=== PATIENT | female | born 1955 | race Caucasian/White ===

== ENCOUNTER 2016-06-05 06:41 | Inpatient (IN) | payer MEDICARE ==
[~2016-06-05] VITALS: Ht 170.2 cm; Wt 152.9 kg
[~2016-06-05 06:41] MED LIST: BETAPACE 80 MG80 MG PO; CARDIZEM IV; CATAPRES0.1 MG PO; COUMADIN5 MG PO; COUMADIN7.5 MG PO; DEMADEX20 MG PO; DEPAKOTE500 MG PO; DILANTIN100 MG PO; DILANTIN30 MG; HEPARIN; HYDROCODONE-APA1 TA3 PO; LANOXIN250 MCG PO; LIBRAX CAPSULE1 CAP PO; LOPRESSOR25 MG PO; MICRO-K10 MEQ PO; NORVASC5 MG PO; PRILOSEC20 MG PO; RISPERDAL 0.50.5 MG PO; SOMA350 MG PO; SYNTHROID25 MCG PO; VICODIN 5/500 T1 TAB PO; ZOLOFT100 MG PO
[2016-06-05 07:48] LABS: BASOPHILS 0.1 % (0.0-2.0); EOSINOPHILS 0 % (0-7); HEMATOCRIT 40.9 % (36.0-48.0); HEMOGLOBIN 13.2 g/dL (12-16); IMMATURE GRANULOCYTES 0.3 % (0-5); LYMPHOCYTES 7.4 % (15-50); MCH 31.3 pg (26.0-34.0); MCHC 32.3 g/dL (31.0-37.0); MCV 96.9 fL (80.0-100.0); MEAN PLATELET VOLUME 10.5 fL (7.4-10.4); NEUTROPHILS 85.2 % (40-80); PLATELET COUNT 196 10x3/uL (130-400); RBC 4.22 10x6/uL (4.00-5.40); RDW 13.8 % (11.5-14.5); WBC 16.7 10x3/uL (4.8-10.8)
[2016-06-05 07:57] LABS: APPEARANCE CLEAR (CLEAR); BILIRUBIN NEGATIVE (NEGATIVE); COLOR YELLOW (YELLOW); GLUCOSE NEGATIVE (NEGATIVE); KETONE NEGATIVE (NEGATIVE); LEUKOCYTE ESTERASE TRACE (NEGATIVE); NITRITE NEGATIVE (NEGATIVE); PROTEIN 2+ mg/dL (NEGATIVE); UROBILINOGEN NORMAL (NORMAL)
[2016-06-05 07:58] LABS: BACTERIA FEW /hpf (NONE SEEN); EPITHELIAL CELLS 0-5 /hpf (0-5); MUCUS <1+ /lpf (NONE SEEN); RED CELLS - URINE NONE SEEN /hpf (0-5); WHITE CELLS - URINE 0-5 /hpf (0-5)
[2016-06-05 07:59] LABS: HYALINE CAST OCC /lpf (NONE SEEN)
[2016-06-05 08:01] LABS: ALBUMIN 3.1 g/dL (3.4-5.0); ANION GAP 12.8 mmol/L (8-16); BILIRUBIN - TOTAL 0.4 mg/dL (0.2-1.3); CALCIUM 9.2 mg/dL (8.5-10.1); CARBON DIOXIDE 26.5 mmol/L (21.0-32.0); CREATININE - SERUM 1.3 mg/dL (0.6-1.3); POTASSIUM - SERUM 5.3 mmol/L (3.5-5.1); PROTEIN - SERUM 7.1 g/dL (6.4-8.2)
[2016-06-05 08:02] LABS: APTT 39.8 SECONDS (22.8-39.4); INR 2.64 (0.85-1.17); PROTIME 28.3 SECONDS (11.6-15.0)
[2016-06-05 08:10] LABS: DIGOXIN 1.37 ng/mL (0.90-2.00); PHENYTOIN (DILANTIN) 3.2 ug/mL (10.0-20.0); THYROID STIMULATING HORMONE 1.4 uIU/mL (0.36-3.74)
[2016-06-05 13:45] VITALS: BP 132/48; BMI 52.2
--- NOTE | 2016-06-05 14:01 | NUR ---
PT IS ALERT. ASSESSMENT DONE PER FLOWSHEET. NO OTHER NEEDS AT THIS TIME. WILL CONTINUE TO MONTIOR.
[2016-06-05] MEDS ORDERED: HYDROCODONE-APA1 TAB PO (14:47)
--- NOTE | 2016-06-05 14:59 | NUR ---
Patient Name: AARON HUNTER Admission Status: ER Accout number: [id number] Admission Date: 06-05-2016 : 1955 Admission Diagnosis: Bronchopneuminia Attending: WESLEY Current LOS: 1 Anticipated DC Date: 06-07-2016 Planned Disposition: Home Primary Insurance: MEDICARE A & B Discharge Planning Comments: Cm met with patient to complete initial discharge planning assessment. Patient gave consent to complete assessment. Patient reports she lives at home with her , her son, and her daughter in law. He has to assist her in and out of the bath/shower and her daughter in law cooks all the meals. She is independent in al other areas of ADL's. Patient plans to return to home with her family at discharge. She is requesting that we assist her with a wheelchair at discharge. CM will continue to follow and assist with dc plan/needs. Babbitter: Tana Patricia RN, [facility] [phone] Is the patient Alert and Oriented? Yes 0 * How many steps to enter\exit or inside your home? ramp 0 * PCP Dr. Jalloh or Dr. Allen 0 * Pharmacy [facility] or [facility] 0 * Preadmission Environment Home with Family 0 * ADLs Partial Dependent 0 * Equipment Cane Walker 0 * Other Equipment PT/INR Monitor (ordered by Dr. Daniel) 0 * List name and contact numbers for known caregivers / representatives who currently or will assist patient after discharge: Paramjit gonsalves - [phone] 0 * Community resources currently utilized None 0 * Additional services required to return to the preadmission environment? Yes 0 * Can the patient safely return to the preadmission environment? Yes 0 * Has this patient been hospitalized within the prior 30 days at any hospital? No
[2016-06-05 15:49] VITALS: BP 134/59
[2016-06-05 18:15] LABS: HEMOGLOBIN A1C 6.3 % (4.8-6.0)
--- NOTE | 2016-06-05 18:35 | NUR ---
MONITOR SHOWS CAF AT RATE OF 77.
[2016-06-05 21:37] VITALS: BP 157/65
[2016-06-06 00:30] VITALS: BP 142/60
[2016-06-06 02:46] LABS: BASOPHILS 0.2 % (0.0-2.0); EOSINOPHILS 0.1 % (0-7); HEMOGLOBIN 13.1 g/dL (12-16); IMMATURE GRANULOCYTES 0.3 % (0-5); LYMPHOCYTES 27.9 % (15-50); MCH 32.1 pg (26.0-34.0); MCHC 32.8 g/dL (31.0-37.0); MEAN PLATELET VOLUME 10.3 fL (7.4-10.4); MONOCYTES 13.2 % (2-11); NEUTROPHILS 58.3 % (40-80); PLATELET COUNT 220 10x3/uL (130-400); RBC 4.08 10x6/uL (4.00-5.40); RDW 13.9 % (11.5-14.5); WBC 15.1 10x3/uL (4.8-10.8)
[2016-06-06 03:11] LABS: INR 1.81 (0.85-1.17)
[2016-06-06 03:16] LABS: ALBUMIN 3.3 g/dL (3.4-5.0); ANION GAP 15.6 mmol/L (8-16); BILIRUBIN - TOTAL 0.48 mg/dL (0.2-1.3); CARBON DIOXIDE 27.7 mmol/L (21.0-32.0); CREATININE - SERUM 1.4 mg/dL (0.6-1.3); POTASSIUM - SERUM 4.3 mmol/L (3.5-5.1); PROTEIN - SERUM 7.6 g/dL (6.4-8.2)
[2016-06-06 04:30] VITALS: BP 170/77
--- NOTE | 2016-06-06 07:23 | NUR ---
PT SITTING UP IN BED DENIES NEEDS WILL CONT TO MONITOR.
[2016-06-06 08:05] LABS: MAGNESIUM - SERUM 1.7 mg/dL (1.8-2.4); PHOSPHOROUS 3.1 mg/dL (2.5-4.9)
[2016-06-06 08:59] VITALS: BP 165/72
[2016-06-06 12:14] VITALS: BP 173/88
[2016-06-06] MEDS ORDERED: MELATONIN10 M1 PO (15:12)
[2016-06-06] MEDS ORDERED: KLONOPIN1 MG PO (15:12)
[2016-06-06 16:13] VITALS: BP 199/84
[2016-06-06] MEDS ORDERED: COZAAR50 MG PO (16:44)
[2016-06-06] MEDS ORDERED: NEURONTIN 300300 MG PO (16:45)
[2016-06-06] MEDS ORDERED: ZOCOR40 MG PO (16:47)
[2016-06-06] MEDS ORDERED: CARDIZEM120 MG PO (16:47)
[2016-06-06] MEDS ORDERED: K-TAB10 MEQ PO (16:48)
[2016-06-06] MEDS ORDERED: LEVOXYL75 MCG PO (16:49)
[2016-06-06] MEDS ORDERED: SOMA350 MG PO (16:50)
[2016-06-06] MEDS ORDERED: PERCOCET 10/3251 TA1 PO (16:50)
--- NOTE | 2016-06-06 18:12 | NUR ---
PT SITTING UP IN BED FAMILY AT BEDSIDE. DENIES NEEDS
--- NOTE | 2016-06-06 19:15 | NUR ---
INITIAL ROUNDS MADE. PT SITTING UP IN BED WITH FAMILY IN ROOM. DENIES NEEDS OR C/O AT THIS TIME. REQUESTING PAIN PILL WHEN AVAILABLE. WILL CONT TO MONITOR.
[2016-06-06 21:37] VITALS: BP 171/75
[2016-06-06] MEDS ORDERED: BENADRYL50 MG PO (21:59)
--- NOTE | 2016-06-07 00:21 | NUR ---
NEWSPAPER DISTRIBUTOR SUPERVISOR AT BEDSIDE FOR VS. NEEDS ADDRESSED AT THIS TIME. CALL LIGHT IN REACH. WILL CONT TO MONITOR.
[2016-06-07 00:30] VITALS: BP 156/65
[2016-06-07 04:45] VITALS: BP 187/77
--- NOTE | 2016-06-07 05:15 | NUR ---
ASSISTED UP TO BATHROOM. AT BEDSIDE.
[2016-06-07 06:46] LABS: BASOPHILS 0.3 % (0.0-2.0); EOSINOPHILS 0.2 % (0-7); HEMATOCRIT 40.1 % (36.0-48.0); IMMATURE GRANULOCYTES 0.4 % (0-5); MCH 31.8 pg (26.0-34.0); MCHC 32.4 g/dL (31.0-37.0); MEAN PLATELET VOLUME 10.6 fL (7.4-10.4); NEUTROPHILS 70.1 % (40-80); PLATELET COUNT 239 10x3/uL (130-400); RBC 4.09 10x6/uL (4.00-5.40); RDW 14.1 % (11.5-14.5)
[2016-06-07 06:47] LABS: WBC 11.2 10x3/uL (4.8-10.8)
[2016-06-07 06:55] LABS: INR 1.62 (0.85-1.17); PROTIME 19.2 SECONDS (11.6-15.0)
[2016-06-07 07:04] LABS: ALBUMIN 3.2 g/dL (3.4-5.0); ANION GAP 15.2 mmol/L (8-16); BILIRUBIN - TOTAL 0.6 mg/dL (0.2-1.3); CALCIUM 8.9 mg/dL (8.5-10.1); CARBON DIOXIDE 25.8 mmol/L (21.0-32.0); CREATININE - SERUM 1.3 mg/dL (0.6-1.3); MAGNESIUM - SERUM 1.5 mg/dL (1.8-2.4); PHOSPHOROUS 3.2 mg/dL (2.5-4.9); PROTEIN - SERUM 7.6 g/dL (6.4-8.2)
--- NOTE | 2016-06-07 07:30 | NUR ---
RECEIVED PT IN BED AAOX4 RESP UNLABORED SKIN W/D COLOR WNL DENIES ANY NEEDS AT THIS TIME NAD NOTED
[2016-06-07 08:00] VITALS: BP 187/73
--- NOTE | 2016-06-07 12:05 | NUR ---
FSBS 122
[2016-06-07 12:08] VITALS: BP 155/68
[2016-06-07 16:00] VITALS: BP 149/72
--- NOTE | 2016-06-07 17:18 | NUR ---
FSBS 129
--- NOTE | 2016-06-07 19:15 | NUR ---
INITIAL ROUNDS MADE. PT SITTING UP IN BED WATCHING TV WITH FAMILY AT BEDSIDE. DENIES NEEDS OR C/O AT THIS TIME. CALL LIGHT IN REACH. WILL CONT TO MONITOR.
[2016-06-07 21:40] VITALS: BP 172/68
--- NOTE | 2016-06-07 22:30 | NUR ---
PT PULLED IV OUT WHEN UP TO BSC, CATH TIP INTACT.
[2016-06-08 02:00] VITALS: BP 140/65
--- NOTE | 2016-06-08 02:30 | NUR ---
ATTEMPT TO RESITE IV UNSUCCESSFUL AT THIS TIME.
--- NOTE | 2016-06-08 03:47 | NUR ---
RESTING WELL WITH EYES CLOSED. CALL LIGHT IN REACH. WILL CONT TO MONITOR.
[2016-06-08 04:21] LABS: BASOPHILS 0.3 % (0.0-2.0); EOSINOPHILS 0.3 % (0-7); HEMATOCRIT 39.5 % (36.0-48.0); HEMOGLOBIN 12.2 g/dL (12-16); IMMATURE GRANULOCYTES 0.3 % (0-5); LYMPHOCYTES 39.8 % (15-50); MCH 31.2 pg (26.0-34.0); MCHC 30.9 g/dL (31.0-37.0); MEAN PLATELET VOLUME 10.3 fL (7.4-10.4); NEUTROPHILS 42.3 % (40-80); RBC 3.91 10x6/uL (4.00-5.40); RDW 14.2 % (11.5-14.5)
[2016-06-08 04:37] LABS: PROTIME 22.7 SECONDS (11.6-15.0)
[2016-06-08 04:46] LABS: ALBUMIN 2.9 g/dL (3.4-5.0); ANION GAP 9.8 mmol/L (8-16); BILIRUBIN - TOTAL 0.36 mg/dL (0.2-1.3); CALCIUM 8.7 mg/dL (8.5-10.1); CREATININE - SERUM 1.1 mg/dL (0.6-1.3); MAGNESIUM - SERUM 1.7 mg/dL (1.8-2.4); POTASSIUM - SERUM 4.4 mmol/L (3.5-5.1)
[2016-06-08 04:50] LABS: PLATELET COUNT 177 10x3/uL (130-400); WBC 6.9 10x3/uL (4.8-10.8)
[2016-06-08 04:53] LABS: CARBON DIOXIDE 36.6 mmol/L (21.0-32.0)
--- NOTE | 2016-06-08 07:30 | NUR ---
RESTING QUIETLY NAD NOTED
[2016-06-08 07:52] VITALS: BP 149/54
--- NOTE | 2016-06-08 08:40 | NUR ---
IV access-22 gauge IV catheter inserted in right hand for access. Elsy LeavittRN
--- NOTE | 2016-06-08 11:23 | NUR ---
WOUND CARE CONSULT: PT HAS DRY SKIN AND IS USING EUCERIN LOTION FOR MOISTURIZING. NO CHRONIC WOUNDS.
--- NOTE | 2016-06-08 11:37 | NUR ---
FSBS 154
[2016-06-08 11:42] VITALS: BP 156/83
[2016-06-08 15:51] VITALS: BP 109/42
--- NOTE | 2016-06-08 17:20 | NUR ---
FSBS 138
--- NOTE | 2016-06-08 19:15 | NUR ---
INITIAL ROUNDS MADE. PT SITTING UP IN BED WATCHING TV WITH FAMILY AT BEDSIDE. DISCUSSED PLAN OF CARE AND ANSWERED QUESTIONS. PT DENIES NEEDS OR C/O AT THIS TIME. CALL LIGHT IN REACH. WILL CONT TO MONITOR.
--- NOTE | 2016-06-08 23:54 | NUR ---
METHODS ENGINEER AT BEDSIDE FOR VS. NEEDS ADDRESSED AT THIS TIME. CALL LIGHT IN REACH. WILL CONT TO MONITOR.
[2016-06-09] VITALS: BP 151/71
[2016-06-09 04:00] VITALS: BP 129/67
[2016-06-09 07:01] LABS: HEMATOCRIT 40.6 % (36.0-48.0); HEMOGLOBIN 12.7 g/dL (12-16); MCH 31.5 pg (26.0-34.0); MCHC 31.3 g/dL (31.0-37.0); MCV 100.7 fL (80.0-100.0); MEAN PLATELET VOLUME 10.2 fL (7.4-10.4); RBC 4.03 10x6/uL (4.00-5.40); RDW 14.2 % (11.5-14.5)
[2016-06-09 07:07] LABS: PLATELET COUNT 244 10x3/uL (130-400)
[2016-06-09 07:20] LABS: INR 2.34 (0.85-1.17); PROTIME 25.7 SECONDS (11.6-15.0)
[2016-06-09 07:26] LABS: ANION GAP 12.6 mmol/L (8-16); BILIRUBIN - TOTAL 0.3 mg/dL (0.2-1.3); CALCIUM 9.1 mg/dL (8.5-10.1); CARBON DIOXIDE 32.6 mmol/L (21.0-32.0); CREATININE - SERUM 1.3 mg/dL (0.6-1.3); POTASSIUM - SERUM 4.2 mmol/L (3.5-5.1); PROTEIN - SERUM 7.1 g/dL (6.4-8.2)
[2016-06-09 07:48] VITALS: BP 120/60
[2016-06-09 08:04] LABS: ANISOCYTOSIS OCC; LYMPHOCYTES 51 % (15-50); MONOCYTES 10 % (2-11); NEUTROPHILS 38 % (40-80); PLATELET ESTIMATE NORMAL
--- NOTE | 2016-06-09 09:48 | NUR ---
PT IS ALERT. ASSESSMENT DONE PER FLOWSHEET. NO OTHER NEEDS AT THIS ITME. WILL CONTINUE TO MONTIOR.
[2016-06-09 11:46] VITALS: BP 142/64
--- NOTE | 2016-06-09 14:27 | NUR ---
NO SS OF DISTRESSS PT UP AT BEDSIDE. WILL CONTINUE TO MONITOR.
[2016-06-09 16:01] VITALS: BP 146/80
--- NOTE | 2016-06-09 19:18 | NUR ---
PT IS ALERT. ASSESSMENT DONE PER FLOWSHEET. NO OTHER NEEDS AT THIS TIME. WILL CONTINUE TO MONTITOR
[2016-06-09 20:00] VITALS: BP 146/71
[2016-06-10] VITALS: BP 156/74
--- NOTE | 2016-06-10 00:26 | NUR ---
PT SLEEPING. APPEARS COMFORTABLE. NO DISTRESS NOTED. RESP EVEN AND UNLABORED. FAMILY SLEEPING AT BEDSIDE. CALL LIGHT WITH IN REACH. WILL CONT. TO MONITOR.
--- NOTE | 2016-06-10 01:11 | NUR ---
PT C/O GENERALIZED PAIN 12/28. STATES PAIN IN WORSE IN RT HIP WHICH IS CHRONIC. PT A/O. SPOUSE AT BEDSIDE. PRN NORCO GIVEN. DENIES OTHER NEEDS. CALL LIGHT WITH IN REACH. WILL CONT. TO MONITOR.
[2016-06-10 05:55] LABS: BASOPHILS 0.5 % (0.0-2.0); EOSINOPHILS 0.3 % (0-7); HEMOGLOBIN 11.1 g/dL (12-16); IMMATURE GRANULOCYTES 0.5 % (0-5); LYMPHOCYTES 49.5 % (15-50); MCH 31.1 pg (26.0-34.0); MCHC 30.8 g/dL (31.0-37.0); MCV 100.8 fL (80.0-100.0); MEAN PLATELET VOLUME 10.5 fL (7.4-10.4); MONOCYTES 11.3 % (2-11); NEUTROPHILS 37.9 % (40-80); RBC 3.57 10x6/uL (4.00-5.40); RDW 14.3 % (11.5-14.5); WBC 7.5 10x3/uL (4.8-10.8)
[2016-06-10 06:03] LABS: INR 2.7 (0.85-1.17); PROTIME 28.9 SECONDS (11.6-15.0)
[2016-06-10 06:07] LABS: PLATELET COUNT 190 10x3/uL (130-400)
[2016-06-10 06:16] LABS: ALBUMIN 2.3 g/dL (3.4-5.0); ANION GAP 10.7 mmol/L (8-16); BILIRUBIN - TOTAL 0.21 mg/dL (0.2-1.3); CALCIUM 8.5 mg/dL (8.5-10.1); CARBON DIOXIDE 33.1 mmol/L (21.0-32.0); CREATININE - SERUM 1.1 mg/dL (0.6-1.3); POTASSIUM - SERUM 4.8 mmol/L (3.5-5.1); PROTEIN - SERUM 5.8 g/dL (6.4-8.2)
[2016-06-10 06:28] VITALS: BP 118/53
[2016-06-10 08:17] VITALS: BP 109/51
--- NOTE | 2016-06-10 08:53 | NUR ---
PT IS ALERT. ASSESSMENT ODNE PER FLOWSHEET. NO OTHER NEEDS
[2016-06-10 11:50] VITALS: BP 94/58
--- NOTE | 2016-06-10 12:22 | NUR ---
PT ALERT. NO SS OF DISTRESS WILL CONTINUE TO MONITOR.
[2016-06-10 16:11] VITALS: BP 104/72
--- NOTE | 2016-06-10 16:59 | NUR ---
Rehab Prescreening Consult recieved and the chart has been reviewed. She is a good rehab candidate, but has not walked with PT. Rehab will re-eval in the AM after PT sees her. Hortensia Francois RN Clinical Liaison, Rehab
--- NOTE | 2016-06-10 19:37 | NUR ---
RESUMED CARE OF PT, LYING IN BED RESPIRATIONS EVEN AND UNLABORED ON 2LPM VIA NC. 77 CAF WITH PVCS. NO NEEDS VOICED AT THIS TIME. WILL CONTIUE TO MONITOR. SEE NURSE ASSESSMENT. CALL LIGHT IN REACH.
[2016-06-10 20:00] VITALS: BP 154/69
[2016-06-11] VITALS: BP 136/64
--- NOTE | 2016-06-11 02:18 | NUR ---
LYING IN BED, CALL LIGHT IN REACH. WILL CONTINUE WITH PLAN OF CARE. 75 CAF WITH PVCS
[2016-06-11 04:00] VITALS: BP 145/71
[2016-06-11 05:25] LABS: BASOPHILS 0.3 % (0.0-2.0); EOSINOPHILS 0.4 % (0-7); HEMATOCRIT 40.1 % (36.0-48.0); HEMOGLOBIN 12.7 g/dL (12-16); IMMATURE GRANULOCYTES 0.6 % (0-5); LYMPHOCYTES 42.1 % (15-50); MCH 31.6 pg (26.0-34.0); MCHC 31.7 g/dL (31.0-37.0); MCV 99.8 fL (80.0-100.0); MEAN PLATELET VOLUME 10.7 fL (7.4-10.4); MONOCYTES 11.6 % (2-11); PLATELET COUNT 219 10x3/uL (130-400); RBC 4.02 10x6/uL (4.00-5.40); RDW 14.1 % (11.5-14.5)
[2016-06-11 05:33] LABS: WBC 9.5 10x3/uL (4.8-10.8)
[2016-06-11 05:47] LABS: ANION GAP 11.6 mmol/L (8-16); CALCIUM 9.3 mg/dL (8.5-10.1); CARBON DIOXIDE 33.9 mmol/L (21.0-32.0); POTASSIUM - SERUM 4.5 mmol/L (3.5-5.1)
[2016-06-11 08:04] VITALS: BP 157/69
--- NOTE | 2016-06-11 09:29 | NUR ---
RESP UL ON 2L NC. IV PATENT. TELEMETRY CAF. WILL CONT. PLAN OF CARE.
[2016-06-11 12:02] VITALS: Ht 170.2 cm; Wt 152.9 kg
--- NOTE | 2016-06-11 12:25 | NUR ---
PATIENT IS INTERESTED IN GOING TO ACUTE REHAB. SHE HAS BEEN EVALUATED BY [facility] AND SHE IS ACCEPTED TO GO TO REHAB TODAY. PATIENT AND HER ARE IN AGREEMENT WITH HER GOING TO REHAB. IMM EXPLAINED AND GIVEN TO PATIENT AND COPY PLACED ON CHART.
[2016-06-11 13:01] VITALS: BP 149/80
--- NOTE | 2016-06-11 13:19 | NUR ---
UP AMBULATING WITH PT ASSIST.
--- NOTE | 2016-06-11 13:49 | CN ---
PATIENT NAME:AARON BOWEN MEDICAL RECORD: [id number] : 51 LOCATION:D. D.2114 ADMIT DATE: 06/05/16 ACCOUNT: [id number] CONSULTING PHYSICIAN: MANASA CARMICHAEL MD REFERRING PHYSICIAN: KAMERON HOLGUIN DO DATE OF CONSULTATION: 06/07/2016 CONSULT REQUESTING PHYSICIAN: Dr. Mtz. REASON FOR CONSULTATION: Pneumonia. Ms. Bowen is a 61-year-old female who was admitted on the 05 of June with possible pneumonia, worsing shortness of breath and coughing. HISTORY OF PRESENT ILLNESS: Ms. Bowen is a 61-year-old female with morbid obesity. According to patient prior admission for almost 2 weeks, she was not feeling well and then she has no energy and 911 was called and the patient was brought into the hospital by ambulance. On arrival here, she has a fever of 100.7. She has cough without much sputum production. She has shortness of breath with exertion. Generally, she is very weak and lethargic. REVIEW OF SYSTEMS: Mainly in the history of present illness. PAST MEDICAL HISTORY: 1. History of seizure disorder. 2. Atrial fibrillation. 3. Status post pacemaker placement. 4. Fibromyalgia. 5. Hypertension. 6. Mitral regurgitation. PAST SURGICAL HISTORY: 1. Cholecystectomy. 2. Carpal tunnel surgery. 3. Status post pacemaker placement. 4. Breast reduction surgery. 5. History of surgery for ectopic . ALLERGIES: SHE IS ALLERGIC TO TALWIN, UNASYN, AMPICILLIN, ANCEF, VERSED, LYRICA, SULFA, BACTRIM. PRESENT MEDICATIONS: 1. She is on Levaquin. 2. She is on albuterol/ipratropium nebulizer. 3. She is on Budesonide and Brovana nebulizer. Her other medications were reviewed on [employer]. PERSONAL AND SOCIAL HISTORY: The patient is . She lives with her . She has remote history of smoking. FAMILY HISTORY: Unknown. PHYSICAL EXAMINATION: GENERAL: Now, the patient is lying comfortably. She is not in acute distress. VITAL SIGNS: The blood pressure is 155/68, pulse is 71, respirations 20, CONSULT REPORT [id number] AARON BOWEN temperature 98.8, SpO2 is 97% on 3 liters nasal cannula. HEENT: Conjunctivae is pink, sclerae nonicteric. NECK: Supple. No JVD. CHEST: Excursion is minimal on both sides. There are bibasilar crackles. No wheezing. HEART: Rhythm regular, normal sound, no murmur. ABDOMEN: Soft. Bowel sounds present. No hepatosplenomegaly. RECTAL: Deferred. EXTREMITIES: No cyanosis, no clubbing and no pedal edema. SKIN: Warm, normal turgor. CENTRAL NERVOUS SYSTEM: The patient is awake and alert. There are no obvious cranial nerve abnormalities. The gait was not tested. LABORATORY DATA: CBC: WBC on admission was 16.7, now is down to 11.2, hemoglobin 13, hematocrit 40.1 and the platelet count is 239. Chemistry: Sodium 136, potassium is 4, BUN is 13, creatinine 1.3. Glucose 198. IMPRESSION: 1. Pneumonia, most likely community-acquired pneumonia, bilateral, possible viral pneumonitis. 2. Leukocytosis secondary to pneumonia. 3. Possible underlying chronic obstructive pulmonary disease with a remote history of smoking. 4. Morbid obesity. 5. Acute hypoxic respiratory failure. 6. Suspect obstructive sleep apnea. RECOMMENDATION: I will continue Levaquin. Continue albuterol/ipratropium nebulizer. Continue the Brovana and budesonide nebulizer. I will repeat the chest radiograph. We will consider the CTA if the chest x-ray is clear. Followup labs. Dr. Mtz, once again thank you for involving me in the care of Ms. Bowen. TRANSINT:[id number] Voice Confirmation ID: [id number] DOCUMENT ID: [id number] MANASA CARMICHAEL MD at 1349 CC: HORACE COOL M.D. [id number] DICTATION DATE: 06/07/16 1545 RELEASE OF INFORMATION SPECIALIST: 06/07/16 3957 ADM IN [place] [id number] [place] [address]
[2016-06-11 16:32] VITALS: BP 159/71
--- NOTE | 2016-06-11 17:01 | NUR ---
REPORT CALLED TO REHAB. ESCORTED BY W/C.
--- NOTE | 2016-06-15 14:37 | EC ---
PATIENT:AARON HUNTER DATE OF SERVICE: 06/05/16 SEX: F MEDICAL RECORD: [id number] DATE OF : [birth year] LOCATION:D.M2 D.211 AGE OF PATIENT: 61 ADMISSION DATE: 06/05/16 REFERRING PHYSICIAN: INTERPRETING PHYSICIAN: PAVEL MORALES MD ECHOCARDIOGRAM REPORT ECHO CHARGES 4 ECHO COMPLETE CLINICAL DIAGNOSIS: LV DYSFUNCTION HX HTN/PACER/AFIB ECHOCARDIOGRAPHIC MEASUREMENTS (adult normal given) AC root (d.<3.7cm) 3.2 LV Septum d (<1.2 cm> 1.3 Valve Excursion 1.5 LV Septum (systole) 1.4 Left Atria (s.<4.0cm> 4.5 LVPW d(<1.2cm) 1.6 RV (d.<2.3cm) 5.5 LVPW (sytole) 1.8 LV diastole(<5.6CM) 6.5 MV E-F(>70mm/sec) LV systole 4.4 LVOT Diameter 1.9 MV exc.(>10mm) 1.4 Est.ejection fraction (50-75%) Pericardial Effusion N DOPPLER: LVIT A 40.0 E 109 LA RVSP 43 LVOT 133 AOP1/2T Asc. Ao 255 RVOT 126 RA PA 158 AV Gradient Peak 26.06 AV Mean 12.44 AV Area 1.4 MV Gradient Peak 9.14 MV Mean 3.0 MV Area COMMENTS: Shirt Finisher: Dede CISNEROS Endless Bed Drum Sander:Merari Reddy TAPE# PACS DATE OF SERVICE: 06/06/2016 Echocardiogram FINDINGS: 1. Left ventricular chamber size is within normal limits. Left ventricular systolic function is normal. Overall ejection fraction estimated at 55% to 60%. 2. Left atrium is enlarged at 4.5 cm. Right atrium and right ventricular chamber sizes are as well moderately dilated. 3. 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 Valve area calculates to 1.4 cm-squared. There is a gradient of 26 mm across the valve. The remaining valvular structures have normal structure and motion. 4. Doppler interrogation elsewise reveals mild mitral regurgitation, mild tricuspid regurgitation, no other valvular insufficiency or stenosis. Pulmonary systolic pressure is mildly elevated estimated at 43 mmHg. 5. No evidence of pericardial effusion or left ventricular thrombus. TRANSINT:[id number] Voice Confirmation ID: [id number] DOCUMENT ID: [id number] 06/14/2016 Edited to correct date of service, [email or web address]. PAVEL MORALES MD at 1437 CC: [id number] DICTATION DATE: 06/07/16 1208 BARTENDER MANAGER: 06/07/16 1424 DIS IN 06/11/16 [place] [id number] [place] [id number]
== END 2016-06-11 17:02 | DRG 189 ==
LOC: D.ER 06:41 → D.M2 12:59
PROVIDERS: Emergency Medicine; Family Medicine; Surgery; ADMIT Family Medicine
DX: J96.01 Acute respiratory failure with hypoxia (principal); J18.9 Pneumonia, unspecified organism; J44.0 Chronic obstructive pulmonary disease with (acute) lower respiratory infection; Z68.43 Body mass index [BMI] 50.0-59.9, adult; G40.909 Epilepsy, unspecified, not intractable, without status epilepticus; I48.91 Unspecified atrial fibrillation; I10 Essential (primary) hypertension; M79.7 Fibromyalgia; I34.0 Nonrheumatic mitral (valve) insufficiency; E66.01 Morbid (severe) obesity due to excess calories; G47.33 Obstructive sleep apnea (adult) (pediatric); E87.5 Hyperkalemia; R73.9 Hyperglycemia, unspecified; I27.2 Other secondary pulmonary hypertension; Z79.01 Long term (current) use of anticoagulants; Z95.0 Presence of cardiac pacemaker; Z87.891 Personal history of nicotine dependence

== ENCOUNTER 2016-06-11 17:27 | Inpatient (IN) | payer MEDICARE ==
--- NOTE | 2016-06-11 17:15 | NUR ---
PT ARRIVED TO THE FLOOR VIA WHEELCHAIR VITAL SIGNS STABLE PT ORIENTED TO ROOM TOLERATED WELL SILVANA CHOPRA
[~2016-06-11 17:27] MED LIST changes: +BENADRYL50 MG PO; +CARDIZEM120 MG PO; +COZAAR50 MG PO; +HYDROCODONE-APA1 TAB PO; +K-TAB10 MEQ PO; +KLONOPIN1 MG PO; +LEVOXYL75 MCG PO; +MELATONIN10 M1 PO; +NEURONTIN 300300 MG PO; +PERCOCET 10/3251 TA1 PO; +ZOCOR40 MG PO
[2016-06-11 18:41] VITALS: BP 173/74
--- NOTE | 2016-06-11 19:40 | NUR ---
PT AWAKE, ALERT & ORIENTED, CONVERSIVE, ASSISTED WITH COMPLETING ADMISSION DOCUMENTATION. PT STATES SHE HAS CHRONIC PAIN AND DOESN'T EVER GET ANY RELIEF RELATED TO HER MYALGIA. PT STATES SHE HAS LOST >100 POUNDS AND EXPRESSES CONCERN ABOUT HER FOOD CHOICES/OPTIONS. SHE STATES SHE HAS STARTED DRINKING REGULAR NINI AGAIN.
--- NOTE | 2016-06-11 21:20 | NUR ---
ASSISTED PT TO BATHROOM WITH MAX ASSIST, PT APPEARS MOTIVATED HOWEVER HAS DIFFICULTY WITH MOBILITY. BED MOBILITY A MAX ASSIST.
[2016-06-11 21:29] VITALS: BP 167/80; BMI 53.4
--- NOTE | 2016-06-12 03:45 | NUR ---
ASSISTED PT ON BEDPAN, MAX ASSIST TIMES 2.
--- NOTE | 2016-06-12 03:45 | NUR ---
PT STATES SHE HURTS TO BAD TO GET UP TO BATHROOM AND SHE HASN'T BEEN ABLE TO SLEEP. PATIENT HAS OXYGEN ON AT 2 L NC.
--- NOTE | 2016-06-12 05:32 | NUR ---
RETURNED WASHED PJ BOTTOMS, PT STATED EARLIER SPOUSE IS EXPECTED TO BRING MORE CLOTHES FOR PATIENT. PJ BOTTOMS BECAME SOILED WHEN USING THE BEDPAN.
--- NOTE | 2016-06-12 06:07 | NUR ---
PT APPEARS TO HAVE RESOLVING YEASTON LEFT PANAS FOLD, NEW REDNESS DEVELOPING IN FOLD.
--- NOTE | 2016-06-12 07:00 | NUR ---
PT WAS RECEIVED AT THE BEGINNING OF THIS SHIFT IN BED AWAKE AND ORIENTED X 3. DENIES ANY PAIN OR DISCOMFORT. WILL BE MONITORING HER AND ASSISTING PRN WITH ADL'S. VITAL SIGNS WNL. CALL LIGHT IS IN REACH. NO SIGNS OF DISTRESS.
[2016-06-12 10:31] LABS: BASOPHILS 0.5 % (0.0-2.0); EOSINOPHILS 0.5 % (0-7); HEMATOCRIT 42.3 % (36.0-48.0); HEMOGLOBIN 13.8 g/dL (12-16); IMMATURE GRANULOCYTES 0.3 % (0-5); LYMPHOCYTES 32.4 % (15-50); MCH 32.5 pg (26.0-34.0); MCHC 32.6 g/dL (31.0-37.0); MCV 99.8 fL (80.0-100.0); MEAN PLATELET VOLUME 9.7 fL (7.4-10.4); MONOCYTES 9.6 % (2-11); NEUTROPHILS 56.7 % (40-80); PLATELET COUNT 280 10x3/uL (130-400); RBC 4.24 10x6/uL (4.00-5.40); RDW 14.1 % (11.5-14.5); WBC 8.8 10x3/uL (4.8-10.8)
[2016-06-12 11:43] LABS: ANION GAP 11.4 mmol/L (8-16); CALCIUM 9.5 mg/dL (8.5-10.1); CARBON DIOXIDE 37.9 mmol/L (21.0-32.0); INR 3.1 (0.85-1.17); POTASSIUM - SERUM 4.3 mmol/L (3.5-5.1); PROTIME 32.2 SECONDS (11.6-15.0)
[2016-06-12 11:47] LABS: CREATININE - SERUM 1.3 mg/dL (0.6-1.3)
[2016-06-12 13:09] VITALS: BP 162/93
--- NOTE | 2016-06-12 18:33 | NUR ---
PT HAS HAD AN UNEVENTFUL DAY TODAY. SHE TOOK A SHOWER THIS AM WITH OT ASSISTING HER. HER HAS COME TO VISIT HER THIS EVENING. SHE IS BACK IN BED AND IS RESTING AFTER HAVING TAKEN A NAP EARLY ON THIS EVENING BEFORE SUPPER. NO SIGNS OF ANY DISCOMFORT OR DISTRESS. CALL LIGHT IS IN REACH.
--- NOTE | 2016-06-12 19:22 | NUR ---
pt resting in bed supine position, respirations regular and unlabored, no s/s of acute distress. family present in room, conversing appears to be no conflict. no needs noted.
[2016-06-12 19:45] VITALS: BP 121/45
--- NOTE | 2016-06-12 22:03 | NUR ---
RIGHT HAND SALINE LOC FLUSHES EASILY. SITE SHOWS NO S/S OF INFECTION.
--- NOTE | 2016-06-13 02:05 | NUR ---
PT IN BED WITH HOB UP FOR COMFORT, EYES CLOSED, CHEST RISING AND FALLING, 02 @ 2L, BED IN LOWEST POSITION AND CALL LIGHT WITHIN REACH.
--- NOTE | 2016-06-13 06:05 | NUR ---
PT IN BED RESTING QUIETLY BED IN LOWEST POSITION AND CALL LIGHT WITHIN REACH.
[2016-06-13 06:49] LABS: INR 3.81 (0.85-1.17)
--- NOTE | 2016-06-13 08:02 | NUR ---
PATIENT RESTING IN BED. PATIENT IS ALERT/OREINT X4. OXYGEN ON AT 2L PER N/C. CALL LIGHT WITHIN REACH. VOICES NO NEEDS AT THIS TIME
--- NOTE | 2016-06-13 10:00 | NUR ---
PATIENT RESTING WELL. STATES RELIEF FROM SCHEDULED NORCO.
--- NOTE | 2016-06-13 14:55 | NUR ---
SLEEPING IN BED ON SIDE.FAMILY PRESENT.
--- NOTE | 2016-06-13 16:00 | NUR ---
COUMADIN HELD INR 3.8
--- NOTE | 2016-06-13 17:28 | NUR ---
PATIENTS AND SON IN ROOM. HELPED PATIENT INTO BATHROOM. PATIENT WALKES WITH STANDBY ASST. MOD ASST TO STAND FROM BED TO WHEELCHAIR AND WHEELCHAIR TO TOILET.
[2016-06-13 17:34] VITALS: BP 116/47
--- NOTE | 2016-06-13 19:00 | NUR ---
IN BD, AWAKE. LYING ON LEFT SIDE. FAMILY MEMBERS RECENTLY DEPARTED PER REPORT OF DAY SHIFT NURSE. PATIENT DENIES CURRENT NEEDS.
[2016-06-13 20:50] VITALS: BP 146/83
--- NOTE | 2016-06-13 20:50 | NUR ---
ASSISTED PATIENT UP TO BR COMMODE TO URINATE, AND THEN BACK TO BED. ASSESSMENT AND SCHEDULED HS MEDS COMPLETE. REPORTS CURRENT PAIN LEVEL OF 6/10, WHICH SHE REVISED DOWN FROM 10/10 AFTER I REVIEWED THE PAIN SCALE WITH HER AND THE REASON FOR ACCURATE REPORTING (TO INSURE WE PROVIDE THE CORRECT AMOUNT OF PAIN MEDICATION COMMENSURATE WITH PATIENT'S PAIN LEVEL).
--- NOTE | 2016-06-13 22:20 | NUR ---
RESTING QUIETLY IN BED ON LEFT SIDE AFTER I ASSISTED HER TO TURN FROM HER BACK ABOUT 2150 HRS.
--- NOTE | 2016-06-14 00:10 | NUR ---
RESTING IN BED AFTER REPOSITIONING ON LEFT SIDE @ 2315. NO DISTRESS NOTED.
--- NOTE | 2016-06-14 02:10 | NUR ---
ASSISTED PATIENT BACK TO BED AND REPOSITIONED HER ON HER LEFT SIDE FOR COMFORT AND PRESSURE RELIEF TO BUTTOCKS. PATIENT TRANSFERRED WITH GREATER DIFFICULTY THIS TIME THAN EARLIER.
--- NOTE | 2016-06-14 04:40 | NUR ---
RESTING IN BED ON LEGFT SIDE. RESPIRATIONS ARE QUIET AND UNLABORED.
--- NOTE | 2016-06-14 05:55 | NUR ---
ASSISTED PATIENT UP TO BR COMMODE TO URINATE AND TO CHANGE CLOTHING FOR THE DAY. RETURNED HER TO BED VIA W/C. TRANSFERS AND REPOSITIONS MAX ASSIST. NOW IN BED ON BACK WITH HOB UP 45 DEGREES.
[2016-06-14 06:05] LABS: BASOPHILS 0.3 % (0.0-2.0); EOSINOPHILS 0.4 % (0-7); HEMOGLOBIN 12.6 g/dL (12-16); IMMATURE GRANULOCYTES 0.3 % (0-5); LYMPHOCYTES 35.6 % (15-50); MCH 31.2 pg (26.0-34.0); MCHC 30.7 g/dL (31.0-37.0); MCV 101.5 fL (80.0-100.0); MEAN PLATELET VOLUME 9.9 fL (7.4-10.4); NEUTROPHILS 50.4 % (40-80); PLATELET COUNT 246 10x3/uL (130-400); RBC 4.04 10x6/uL (4.00-5.40); RDW 13.8 % (11.5-14.5); WBC 7.8 10x3/uL (4.8-10.8)
[2016-06-14 06:20] LABS: CALCIUM 8.8 mg/dL (8.5-10.1); CREATININE - SERUM 1.2 mg/dL (0.6-1.3); POTASSIUM - SERUM 4.4 mmol/L (3.5-5.1)
[2016-06-14 06:22] LABS: ANION GAP 9.4 mmol/L (8-16)
[2016-06-14 06:42] LABS: INR 4.5 (0.85-1.17); PROTIME 43.5 SECONDS (11.6-15.0)
--- NOTE | 2016-06-14 12:09 | NUR ---
SITTING UP IN ROOM EATING LUNCH. DENIES INCREASED PAIN. UP WITH MOD ASST.
[2016-06-14 16:17] VITALS: BP 152/71
--- NOTE | 2016-06-14 19:20 | NUR ---
PATIENT IN BED, AWAKE. VISITING AT BEDSIDE. DELIVERED PATIENT'S MENU FOR HER TO COMPLETE. PATIENT DENIES NEEDS.
--- NOTE | 2016-06-14 21:25 | NUR ---
IN BED ON RIGHT SIDE. RESTING QUIETLY.
[2016-06-14 22:25] VITALS: BP 117/69
--- NOTE | 2016-06-14 22:25 | NUR ---
WITH ASSISTANCE FROM ASHLEY DOMINGO, REPOSITIONED PATIENT IN BED. PATIENT IS OF LITTLE ASSISTANCE IN THE EFFORT DUE TO WEAKNESS. ASSESSMENT AND HS MEDS COMPLETED. GAVE HER SCHEDULED NORCO 10/325 X1 TAB PO. REPORTS PAIN LEVEL OF 7/10 IN BILAT KNEES AND LOW BACK. TURNED PATIENT TO LEFT SIDELYING POSITION WITH PILLOWS FOR COMFORT AND MAINTENANCE OF DESIRED POSITION.
--- NOTE | 2016-06-15 | NUR ---
IN BED, EYES CLOSED. REMAINS IN LEFT SIDELYING POSITION. APPEARS COMFORTABLE.
--- NOTE | 2016-06-15 02:10 | NUR ---
CONTINUES IN BED ON LEFT SIDE, RESTING QUIETLY, EYES CLOSED.
--- NOTE | 2016-06-15 06:12 | NUR ---
ASSISTED PATIENT UP TO BR TO BR COMMODE. ON COMPLETION OF TOILETING ASSISTED PATIETN TO BATHE USING BATH WIPES AND ALOE VESTA FOAM BATH WASH. CHANGED PATIENT'S LINENS AND ASSISTED HER TO DRESS AND RETURN TO BED.
[2016-06-15 07:15] LABS: INR 2.98 (0.85-1.17); PROTIME 31.2 SECONDS (11.6-15.0)
--- NOTE | 2016-06-15 07:30 | NUR ---
SITTING UP IN BED. USES OVERHEAD TRAPIEZE TO MOVE SELF A LITTLE BIT IN BED. ALERT AND ORIENTED. IS GROSSLY OBESE AND HAS HARD TIME STANDING UP WITH WALKER AND AMBULATING. EDEMA NOTED TO BLE.
[2016-06-15 09:58] VITALS: BMI 53.3
[2016-06-15 16:15] VITALS: BP 138/65
[2016-06-15 19:12] VITALS: BP 175/76
--- NOTE | 2016-06-15 21:00 | NUR ---
ASSESSMENT AND HS MEDS COMPLETE. C/O PAIN LEVEL OF 6/10 IN BACK AND BILAT KNEES FOR WHICH SHE RECEIVED SCHEDULED NORCO 10/325 X1 TAB PO.
--- NOTE | 2016-06-15 22:20 | NUR ---
RESTING IN BED, EYES CLOSED. NO DISTRESS EVIDENT.
--- NOTE | 2016-06-16 00:15 | NUR ---
CONTINUES IN BED, EYES CLOSED. APPEARS COMFORTABLE.
--- NOTE | 2016-06-16 02:00 | NUR ---
REMAINS IN BED, EYES CLOSED. NO APPARENT DISTRESS.
--- NOTE | 2016-06-16 03:40 | NUR ---
ASSISTED PATIENT UP TO BR TO URINATE, AND THEN BACK TO BED. WITH ASSISTANCE FROM CLAY DOMINGO, REPOSITIONED PATIENT IN LEFT SIDELYING POSITION FOR COMFORT AND PRESSURE RELIEF TO BACK AND BUTTOCKS. WHILE IN BR, I ASKED PATIENT IF SHE WANTED TO CHANGE HER CLOTHING FOR THERAPY TODAY. SAID SHE WILL DO THERAPY IN CURRENT CLOTHING.
--- NOTE | 2016-06-16 04:35 | NUR ---
RESTING QUIETLY IN BED ON HER LEFT SIDE SINCE REPOSITIONING @ 0340 HRS. RESPIRATIONS UNLABORED.
--- NOTE | 2016-06-16 05:45 | NUR ---
AWOKE PATIENT AND GAVE HER SCHEDULED PROTONIX AND SYNTHROID TO HER. DENIES NEEDS. SAYS SHE IS QUITE COMFORTABLE RESTING ON HER LEFT SIDE.
[2016-06-16 07:12] LABS: ANION GAP 8.1 mmol/L (8-16); CALCIUM 9.3 mg/dL (8.5-10.1); CREATININE - SERUM 1.2 mg/dL (0.6-1.3); DIGOXIN 1.53 ng/mL (0.90-2.00); PHENYTOIN (DILANTIN) 14.3 ug/mL (10.0-20.0); POTASSIUM - SERUM 4.1 mmol/L (3.5-5.1); VALPROIC ACID (DEPAKOTE) 37.7 ug/mL (50.0-100.0)
[2016-06-16 07:14] LABS: PROTIME 25.9 SECONDS (11.6-15.0)
[2016-06-16 07:23] LABS: INR 2.36 (0.85-1.17)
[2016-06-16 07:25] LABS: BASOPHILS 0.3 % (0.0-2.0); EOSINOPHILS 0.7 % (0-7); HEMATOCRIT 39.6 % (36.0-48.0); HEMOGLOBIN 12.2 g/dL (12-16); IMMATURE GRANULOCYTES 0.3 % (0-5); LYMPHOCYTES 43.7 % (15-50); MCH 31.2 pg (26.0-34.0); MCHC 30.8 g/dL (31.0-37.0); MCV 101.3 fL (80.0-100.0); MEAN PLATELET VOLUME 10.2 fL (7.4-10.4); MONOCYTES 13.2 % (2-11); NEUTROPHILS 41.8 % (40-80); PLATELET COUNT 233 10x3/uL (130-400); RBC 3.91 10x6/uL (4.00-5.40)
--- NOTE | 2016-06-16 07:45 | NUR ---
PT RESTING IN BED WITH EYES CLOSED. AWOKE EASILY TO VERBAL STIMULI. ALERT AND ORIENTED X 3. DENIES ACUTE PAIN OR DISCOMFORT AT THIS TIME. O2 IS ON @ 2LPM PER NC. NO SOB NOTED. PT ASSISTED TO POSITION FOR BREAKFAST. FEEDING SELF WITHOUT DIFFICULTY. SR'S ARE UP X 2 IN BED. CALL LIGHT AND BEDSIDE TABLE ARE WITHIN EASY REACH.
[2016-06-16 08:44] VITALS: BP 134/42
--- NOTE | 2016-06-16 09:07 | NUR ---
PT IS RESTING IN BED AWAITING THERAPY. NO NEEDS VOICED.
--- NOTE | 2016-06-16 11:49 | NUR ---
PT IS SHOWERING WITH OT AT THIS TIME.
--- NOTE | 2016-06-16 13:00 | NUR ---
DENIES NEEDS.CL IN REACH.
--- NOTE | 2016-06-16 14:37 | NUR ---
CARE TEAM MEETING: PATIENT TENATIVE DISCHARGE DATE IS 06/25/16. PCP IS DR. COOL AND SHE ALSO SEES DR. SARMIENTO. SHE USES A WALKER AT HOME AND WOULD LIKE A WHEELCHAIR WHEN DISCHARGED.WILL TRY WEAN PATIENT OFF HER O2 BEFORE DISCHARGE. WILL CONTINUE TO FOLLOW WITH PATIENT
--- NOTE | 2016-06-16 16:20 | NUR ---
PT RESTING IN BED WITH EYES CLOSED. NO DISTRESS NOTED.
--- NOTE | 2016-06-16 19:45 | NUR ---
IN BED ON BACK. DENIES NEEDS.
[2016-06-16 20:51] VITALS: BP 136/55; BP 142/48
--- NOTE | 2016-06-16 21:50 | NUR ---
ASSESSMENT AND HS MEDS COMPLETE. PAIN LEVEL 6/10 IN BILAT AND KNEES AND LOW BACK. PATIENT RECEIVED SCHEDULED NORCO 10/325 X1 TAB PO.
--- NOTE | 2016-06-16 23:30 | NUR ---
TURNED PATIENT TO LEFT SIDELYING POSITION SHE IS UNCOMFORTABLE LYING ON HER RIGHT SIDE. DENIES FURTHER NEEDS.
--- NOTE | 2016-06-17 01:30 | NUR ---
CONTINUES IN BED ON LEFT SIDE. NO DISTRESS NOTED.
--- NOTE | 2016-06-17 04:00 | NUR ---
IN BED, LYING ON LEFT SIDE. RESPIRATIONS ARE QUIET AND UNLABORED.
--- NOTE | 2016-06-17 05:35 | NUR ---
ASSISTED PATIENT TO BR TO URINATE AND CHANGE CLOTHES. TRANSFERS WERE MARKEDLY WEAKER THIS AM. PATIENT C/O LEANING TO LEFT SIDE. AFTER TOILETING, RETURNED HER TO BED WHERE SHE TOOK 0600-SCHEDULED MEDS AND WAS TURNED TO LEFT SIDELYING POSITION FOR COMFORT.
[2016-06-17 06:04] LABS: INR 1.79 (0.85-1.17); PROTIME 20.7 SECONDS (11.6-15.0)
--- NOTE | 2016-06-17 07:00 | NUR ---
PT WAS RECEIVED AT THE BEGINNING OF THIS SHIFT IN BED WITH EYES CLOSED. BREATHING EASY AND UNLABORED. 02 PER NC GOING AT 2L/MIN. TELEMETRY ON. NO SIGNS OF ANY DISCOMFORT OR DISTRESS. WILL BE MONITORING THROUGHOUT THIS SHIFT AND ASSISTING PRN WITH ADL'S. CALL LIGHT IS IN REACH.
--- NOTE | 2016-06-17 08:38 | RHP ---
PATIENT: AARON HUNTER [place] MEDICAL RECORD: [id number] ACCOUNT: [id number] LOCATION:[facility] : 51 ADMISSION DATE: 06/11/16 REHABILITATION HISTORY AND PHYSICAL EXAMINATION POST ADMISSION PHYSICIAN EXAMINATION DATE OF ADMISSION: 06/11/2016 ADMITTING DIAGNOSES: Bilateral bronchopulmonary pneumonia, acute hypoxic respiratory failure and hypoxemia. HISTORY OF PRESENT ILLNESS: The patient is a 61-year-old female, the patient is admitted with bilateral pneumonia and hypoxemia and she got morbid obesity according to her prior admissions for almost 2 weeks. She was not feeling well and had no energy, 911 was called and she was brought to the Emergency Room by ambulance. On arrival, she had a temperature of 100.7. Cough without much sputum production. She was short of breath with exertion and generally very weak. She had bibasilar crackles. Chest x-ray showed cardiomegaly and mild vascular congestion, infiltrate or atelectasis in the mid to lower chest. She was admitted with a pulmonary consult prior to admission. She is moderately independent with a rolling walker for ADLs and supervision of her meal prep and errands. Currently, she is mod to max assist for ADLs and mobility. She wants to regain her strength and return home with her . COMORBIDITIES: In this patient include morbid obesity, hyperkalemia, hyperglycemia, fever, hypoxia, seizure disorder, weakness, fatigue, lethargy, mitral regurg, fibromyalgia, cardiomegaly, leukocytosis, possible COPD, hypertension, chronic atrial fib and pneumonia. PAST MEDICAL HISTORY: Significant for seizure disorder, atrial fib, status post pacemaker placement, fibromyalgia, hypertension and mitral regurge. PAST SURGICAL HISTORY: Includes cholecystectomy, carpal tunnel surgery, status post pacemaker placement and breast reduction surgery. ALLERGIES: VERSED, TALWIN, AMPICILLIN, ANCEF, LYRICA, SULFA AND BACTRIM. CURRENT MEDICATIONS: Include nystatin powder, Demadex 20 mg b.i.d., Librium p.r.n., warfarin 5 mg daily. She is on simvastatin 40 mg daily, Zoloft 200 mg daily, potassium 10 mEq daily, Protonix 40 mg daily, Cozaar 50 mg daily, Synthroid 75 mcg daily, digoxin 0.25 mg daily, Benadryl p.r.n. congestion, sotalol 120 mg b.i.d., Dilantin 600 mg at bedtime, metoprolol 25 mg b.i.d., melatonin 3 mg at bedtime p.r.n., Jefferson 10/325 t.i.d. p.r.n. pain, Neurontin 200 mg t.i.d., Depakote 500 mg b.i.d., Diltiazem 120 mg b.i.d., Klonopin 1 mg at bedtime, Soma 350 mg b.i.d. and polyethylene glycol 17 grams in 8 ounces of water daily. HABITS: No alcohol or tobacco use. FAMILY HISTORY: Noncontributory. SOCIAL HISTORY: The patient hopes to return back home with her and get back to her prior level of functioning. REVIEW OF SYSTEMS: HISTORY AND PHYSICAL [id number] AARON HUNTER GENERAL: Does complain of weakness and fatigue. HEENT: Does complain of cold, cough, or congestion. CARDIOVASCULAR: Denies any chest pain. LUNGS: Does complain of shortness of breath. PHYSICAL EXAMINATION: VITAL SIGNS: Stable, afebrile. GENERAL: A morbidly obese female in no acute distress, alert upon exam. HEENT: Normocephalic and atraumatic. Mucosa moist. NECK: Supple. No lymphadenopathy. LUNGS: Coarse breath sounds bilaterally. HEART: Regular rate and rhythm. ABDOMEN: Benign. EXTREMITIES: Does have some peripheral edema. NEUROLOGIC: Intact. LABORATORY DATA: Her white count is 8.8, H&H of 13 and 42, and platelet count was noted to be 280. Her INR is 3.10. Sodium 141, potassium 4.3, BUN and creatinine of 24 and 1.3 and blood sugar is noted to be 174. ASSESSMENT: This is a 61-year-old female patient admitted to rehab with a working diagnosis of bilateral bronchopulmonary pneumonia, acute hypoxic respiratory failure and hypoxia. The patient has potential to make improvement. We instituted the following multidisciplinary therapies including to, but not limited to physical, occupational, respiratory, speech, nutritional services, prosthetics and orthotics. Given her complex condition and risk for more complications, rehabilitation services cannot be provided at a low level of care such as a fpc facility. PLAN: 1. Admit to [facility] rehab for intensive inpatient therapy to include the following disciplines: A. Physical therapy to improve gait, all transfer skills and bed mobility to a modified independent level. B. Occupational therapy to improve activities of daily a modified independent level. C. Case management to assist with discharge planning and placement options. D. Nutrition to assist with nutritional needs. E. Rehabilitation nursing to assist in monitoring the patient's underlying medical conditions and to assist with any type of bowel or bladder management. 2. The patient's current medications and medical care will be continued. 3. The patient will be placed on standard fall precautions. 4. The patient's estimated length of stay is approximately 7-10 days. 5. We will go ahead and monitor her pneumonia closely. We will go ahead and also follow her seizure medicines closely and discussed during care team on Tuesday. TRANSINT:[id number] Voice Confirmation ID: [id number] DOCUMENT ID: [id number] HISTORY AND PHYSICAL [id number] AARON HUNTER SCOTT MD at 0838 CC: [id number] DICTATION DATE: 06/12/16 1229 GUARD SUPERVISOR: 06/12/16 1441 ADM IN [id number] [place] [address]
[2016-06-17 10:36] VITALS: BP 143/50
--- NOTE | 2016-06-17 14:19 | NUR ---
PT HAS HAD AN UNEVENTFUL DAY. SHE WENT TO THERAPY THIS MORNING AND HAS WORKED HARD TODAY. NO COMPLAINTS OF ANY PAIN OR DISCOMFORT. PT WEARS 02 AT 2L/MIN PER NC. SHE REQUIRES MAX ASSIST WITH TRANSFERS. CONTINUING TO OBSERVE.
[2016-06-17 19:38] VITALS: BP 125/68
--- NOTE | 2016-06-17 21:32 | NUR ---
PT IN BED LYING ON LEFT SIDE, WATCHING TV, 02 @ 2L VIA N/C, BED IN LOWEST POSITION AND CALL LIGHT WITHIN REACH.
--- NOTE | 2016-06-18 01:30 | NUR ---
PT IN BED, EYES CLOSED, CHEST RISING AND FALLING, O2 @ 2L VIA N/C, BED IN LOWEST POSITION AND CALL LIGHT WITHIN REACH.
--- NOTE | 2016-06-18 04:13 | NUR ---
PT RESTING, EYES CLOSED. RR ARE EVEN AND UNLABORED. NO SIGNS OF DISTRESS NOTED. WCTM. BED LOW. CL IN REACH.
[2016-06-18 06:37] LABS: BASOPHILS 0.5 % (0.0-2.0); EOSINOPHILS 0.6 % (0-7); HEMATOCRIT 38.9 % (36.0-48.0); IMMATURE GRANULOCYTES 0.2 % (0-5); LYMPHOCYTES 47.6 % (15-50); MCH 31.5 pg (26.0-34.0); MCHC 30.8 g/dL (31.0-37.0); MCV 102.1 fL (80.0-100.0); MONOCYTES 10.1 % (2-11); PLATELET COUNT 207 10x3/uL (130-400); RBC 3.81 10x6/uL (4.00-5.40); RDW 13.9 % (11.5-14.5); WBC 6.6 10x3/uL (4.8-10.8)
[2016-06-18 06:56] LABS: ANION GAP 8.2 mmol/L (8-16); CARBON DIOXIDE 39.6 mmol/L (21.0-32.0); CREATININE - SERUM 1.2 mg/dL (0.6-1.3); POTASSIUM - SERUM 3.8 mmol/L (3.5-5.1)
[2016-06-18 07:21] LABS: INR 1.66 (0.85-1.17); PROTIME 19.6 SECONDS (11.6-15.0)
--- NOTE | 2016-06-18 07:30 | NUR ---
RESTING QUIETLY IN BED. CALL LIGHT IN REACH
[2016-06-18 08:42] VITALS: BP 138/51
--- NOTE | 2016-06-18 10:53 | NUR ---
OCCUPATIONAL THERAPIST IN WITH PATIENT FOR SHOWER. PATIENT IS ALERT/ORIENT X4. MOD ASST FROM BED TO WALKER. USING WALKER TO WALK. PATIENT HAS SCHEDULED PAIN MEDICATION FOR PAIN RATING ABOUT A 6 ON PAIN SCALE OF 1-10
--- NOTE | 2016-06-18 13:42 | NUR ---
PATIENT BACK IN REHAB WORKING WITH PHYSICAL THERAPIST
--- NOTE | 2016-06-18 17:06 | NUR ---
PATIENTS VISITING IN ROOM. PATIENT DENIES ANY NEEDS AT THIS TIME
[2016-06-18 19:38] VITALS: BP 149/56
--- NOTE | 2016-06-18 20:50 | NUR ---
PT. IN BED WITH HOB UP FOR COMFORT AND IS WATCHING TV. ASSESSMENT COMPLETED. NO VOICED NEEDS AT THIS TIME AND HER CALL LIGHT IS WITHIN REACH.
--- NOTE | 2016-06-18 23:07 | NUR ---
PT. IN BED WITH HOB SLIGHTLY ELEVATED. EYES ARE CLOSED AND RESP. EVEN. CALL LIGHT WITHIN REACH.
--- NOTE | 2016-06-19 03:08 | NUR ---
PT. IN BED WITH HOB UP FOR COMFORT. EYES CLOSED AND RESP. EVEN. CALL LIGHT WITHIN REACH.
--- NOTE | 2016-06-19 06:38 | NUR ---
PT. ACCIDENTLY DROPPED HER PROTONIX SO ANOTHER TAB HAD TO BE PULLED TO ADMINISTER.
[2016-06-19 07:00] VITALS: BP 154/56
--- NOTE | 2016-06-19 08:15 | NUR ---
PT RESTING IN BED WITH EYES OPEN CALL LIGHT IN REACH WILL MONITER
[2016-06-19 08:18] LABS: INR 1.35 (0.85-1.17); PROTIME 16.6 SECONDS (11.6-15.0)
--- NOTE | 2016-06-19 15:39 | NUR ---
PT RESTING IN BED EYES OPEN CALL LIGHT IN REACH WILL MONITER
--- NOTE | 2016-06-19 18:16 | NUR ---
PT RESTING IN BED WITH EYES OPEN CALL LIGHT IN REACH NO PROBLEMS WILL MONITER
[2016-06-19 19:32] VITALS: BP 118/42
--- NOTE | 2016-06-19 19:40 | NUR ---
assisted patient with min assist with transfer from bed to w/c pt states she doesn't want to go to a alf and states she is motivated to go home and wants as little help as possible. pt needs hands on assistance with transferring legs into bed.
--- NOTE | 2016-06-19 21:45 | NUR ---
pt requires more time than expected with transfers, mobility and toileting. pt does demonstrate safety precautions. pt very conversive.
--- NOTE | 2016-06-20 01:04 | NUR ---
pt resting with eyes closed, no s/s of acute distress, respirations regular and unlabored.
--- NOTE | 2016-06-20 03:41 | NUR ---
PT IN BED, EYES CLOSED, CHEST RISING AND FALLING, O2 @ 2L VIA N/C, BED IN LOWEST POSITION AND CALL LIGHT WITHIN REACH.
[2016-06-20 06:18] LABS: INR 1.39 (0.85-1.17)
[2016-06-20 07:00] VITALS: BP 119/47
--- NOTE | 2016-06-20 07:30 | NUR ---
RESTING QUIETLY IN BED CALL LIGHT IN REACH
--- NOTE | 2016-06-20 08:15 | NUR ---
PT RESTING IN BED WITH EYES OPEN CALL LIGHT IN REACH NO PROBLEMS WILL MONITER
--- NOTE | 2016-06-20 14:46 | NUR ---
PT RESTING IN BED WITH EYES OPEN CALL LIGHT IN REACH NO PROBLEMS WILL MONITER
--- NOTE | 2016-06-20 18:41 | NUR ---
PT RESTING IN BED WITH EYES OPEN CALL LIGHT IN REACH WILL MONITER
[2016-06-20 20:00] VITALS: BP 130/59
--- NOTE | 2016-06-20 22:28 | NUR ---
PT. IN BED WITH HOB UP FOR COMFORT AND WATCHING TV. ASSESSMENT COMPLETED. PT. REQUESTING PAIN MEDICATION FOR HER KNEES. NORCO WILL BE ADMINISTERED. CALL LIGHT WITHIN REACH. PT. REQUESTS A BEDTIME SNACK AN ORANGE SHERBERT.
--- NOTE | 2016-06-20 23:03 | NUR ---
PT. IN BED LYING ON HER LEFT SIDE WITH HOB UP FOR COMFORT. EYES CLOSED AND RESP. EVEN. CALL LIGHT WITHIN REACH.
[2016-06-21 07:24] LABS: BASOPHILS 0.5 % (0.0-2.0); EOSINOPHILS 0.9 % (0-7); HEMOGLOBIN 12.4 g/dL (12-16); IMMATURE GRANULOCYTES 0.2 % (0-5); LYMPHOCYTES 51.3 % (15-50); MCH 31.2 pg (26.0-34.0); MCV 100.8 fL (80.0-100.0); MEAN PLATELET VOLUME 10.5 fL (7.4-10.4); MONOCYTES 11.1 % (2-11); PLATELET COUNT 223 10x3/uL (130-400); RBC 3.97 10x6/uL (4.00-5.40); RDW 13.7 % (11.5-14.5); WBC 6.6 10x3/uL (4.8-10.8)
[2016-06-21 07:34] LABS: ANION GAP 7.1 mmol/L (8-16); CALCIUM 9.4 mg/dL (8.5-10.1); CREATININE - SERUM 1.1 mg/dL (0.6-1.3); POTASSIUM - SERUM 4.3 mmol/L (3.5-5.1)
[2016-06-21 07:47] LABS: CARBON DIOXIDE 41.2 mmol/L (21.0-32.0)
[2016-06-21 07:51] LABS: INR 1.31 (0.85-1.17); PROTIME 16.2 SECONDS (11.6-15.0)
[2016-06-21 08:00] VITALS: BP 127/73
--- NOTE | 2016-06-21 08:28 | NUR ---
LAB CALLED WITH CRITICAL CO2 LEVEL OF 41.2. DR. Marlys MARCELO INTO SEE PATIENT AWARE OF. PATIENT HELPED INTO BATHROOM. FROM BED TO WHEELCHAIR MOD TO MAX ASST OF ONE THIS MORNING. PATIENT STATES THAT HER RIGHT KNEE IS NOT RIGHT THIS MORNING. VERY SLOW MOVING WITH WHEELED WALKER. PATIENT IS ABLE TO LOWER SELF TO TOILET WITH GRAB BAR. UNABLE TO PULL UP OR DOWN PANTS
--- NOTE | 2016-06-21 10:51 | NUR ---
PATIENT IN REHAB ROOM. WORKING WITH PHYSICAL THERAPIST. RATES GENERAL PAIN/DISC AT A 2 ON PAIN SCALE OF 1-10 AT THIS TIME
--- NOTE | 2016-06-21 12:00 | NUR ---
THIS PATIENT SITTING UP IN WHEELCHAIR TO EAT LUNCH. CALL LIGHT WITHIN REACH. VOICES NO NEEDS
--- NOTE | 2016-06-21 14:15 | NUR ---
PATIENT IS ALERT/ORIENT X4. OBESE. ABDOMINAL FOLDS RED. NYSTAIN POWER APPLED. HX OF FIBROMYALGA. HAS JOINT AND MUSCLE PAIN WHICH SHE GETS SCHEDULED NORVT FOR.
--- NOTE | 2016-06-21 17:25 | NUR ---
IN ROOM. VISITING WITH PATIENT
--- NOTE | 2016-06-21 19:35 | NUR ---
PT SITTING UP IN WHEELCHAIR, SPOUSE IN ROOM. ENGINEERING CURRENTLY IN ROOM FIXING TV. PT DENIES NEEDS. WCTM. BED LOW. CLIN REACH.
--- NOTE | 2016-06-21 20:35 | NUR ---
PT HS MEDS ADMINISTERED. PT DENIES NEEDS. WCTM. BED LOW. CLIN REAHC.
[2016-06-21 20:45] VITALS: BP 127/68
--- NOTE | 2016-06-21 22:09 | NUR ---
PT RESTING, EYES CLOSED. BED LOW. CLIN REAHC.
--- NOTE | 2016-06-22 00:35 | NUR ---
PT RESTING, EYES CLOSED. BED LOW. CL IN REACH.
--- NOTE | 2016-06-22 02:10 | NUR ---
PT RESTING, EYES CLOSED. BED LOW. CLIN REACH.
--- NOTE | 2016-06-22 03:50 | NUR ---
CHANGED BATTERIES TO TELEMETRY. PT DENIES NEEDS. WCTM. BED LOW. CL IN REACH.
[2016-06-22 06:39] LABS: INR 1.31 (0.85-1.17); PROTIME 16.2 SECONDS (11.6-15.0)
[2016-06-22 08:37] VITALS: BP 126/45
--- NOTE | 2016-06-22 11:01 | NUR ---
Nutrition Monitoring and Eval: Chart reviewed. Pt is eating 96% meal avg on a diabetic diet. Rec continue current diet. RD will continue to monitor pt progress per policy.
--- NOTE | 2016-06-22 15:32 | NUR ---
PATIENT UP IN W/C IN THERAPY WITH pt. DENIES PAIN OR DISCOMFORT AT PRESENT, IN GYM AREA.
[2016-06-22 19:16] VITALS: BP 139/50
--- NOTE | 2016-06-22 19:50 | NUR ---
PT RESTING, EYES CLOSED. AROUSES EASILY TO VOICE. PT DENIES NEEDS. WCTM .BED LOW. CL IN REACH.
--- NOTE | 2016-06-22 21:20 | NUR ---
PT ASSISTED TO BR. PT BACK IN BED AND HS MEDS ADMINISTERED. PT DENIES NEEDS AT THIS TIME. WCTM. BED LOW. CLIN REACH.
--- NOTE | 2016-06-22 23:20 | NUR ---
PT RESTING, EYES CLOSED. BED LOW. CL IN REACH.
--- NOTE | 2016-06-23 01:15 | NUR ---
PT RESTING, EYES CLOSED. BED LOW. CL IN REACH.
--- NOTE | 2016-06-23 03:20 | NUR ---
PT RESTING, EYES CLOSED. BED LOW. CL IN REACH.
--- NOTE | 2016-06-23 05:48 | NUR ---
PT AM MEDS ADMINISTERED. PT DENIES NEEDS. WCTM. BED LOW. CL IN REACH.
[2016-06-23 06:27] LABS: BASOPHILS 0.6 % (0.0-2.0); EOSINOPHILS 0.7 % (0-7); HEMATOCRIT 36.2 % (36.0-48.0); LYMPHOCYTES 41.1 % (15-50); MCHC 30.4 g/dL (31.0-37.0); MEAN PLATELET VOLUME 10.8 fL (7.4-10.4); MONOCYTES 13.8 % (2-11); NEUTROPHILS 43.8 % (40-80); PLATELET COUNT 223 10x3/uL (130-400); RBC 3.55 10x6/uL (4.00-5.40); RDW 13.9 % (11.5-14.5); WBC 6.8 10x3/uL (4.8-10.8)
[2016-06-23 06:47] LABS: ANION GAP 6.4 mmol/L (8-16); CALCIUM 8.9 mg/dL (8.5-10.1); CARBON DIOXIDE 39.5 mmol/L (21.0-32.0); POTASSIUM - SERUM 3.9 mmol/L (3.5-5.1)
[2016-06-23 06:53] LABS: CREATININE - SERUM 1.4 mg/dL (0.6-1.3)
--- NOTE | 2016-06-23 08:00 | NUR ---
PATIENT IS ALERT/ORIENT X4. CALL LIGHT WITHIN REACH. VOICES NO NEEDS AT THIS TIME. SITTING UP IN BED TO EAT BREAKFAST. PATIENT USING CALL LIGHT FOR NEEDS. DOES NOT TRY TO GET OUT OF BED OR WHEELCHAIR BY SELF
[2016-06-23 09:02] VITALS: BP 127/49
--- NOTE | 2016-06-23 09:32 | NUR ---
DR. Marlys MARCELO INTO SEE PATIENT. NEW ORDERS RECEIVED
--- NOTE | 2016-06-23 10:21 | NUR ---
PATIENT IN REHAB ROOM. WORKING WITH PHYSCIAL THERAPIST. STATES SHE HAS GENERALIZE PAIN RATED AT A 2 ON PAIN SCALE OF 1-10.
--- NOTE | 2016-06-23 11:59 | NUR ---
PATIENTS FAMILY IN ROOM, VISITING. BROUGHT IN LUNCH. PATIENT IS ON A DIABETIC DIET. FAMILY AWARE OF. STILL BRINGS IN FOOD FROM HOME OR FAST FOOD THAT IS NOT A DIABETIC DIET.
--- NOTE | 2016-06-23 15:24 | NUR ---
PATIENT TO BE DISCHARGED HOME ON TUESDAY. FAMILY HERE, , SON AND DAUGHTER IN LAW. WORKING WITH TRANSFERS FROM BED TO WHEELCHAIR.
--- NOTE | 2016-06-23 16:00 | NUR ---
resting quietly.cl in reach.
--- NOTE | 2016-06-23 16:54 | NUR ---
CARE TEAM MEETING: FAMILY ATTENDED MEETING. TENATIVE DISCHARGE DATE IS 06/25/16. NO NEW DME NEEDED AT THIS TIME. WILL CONTINUE TO FOLLOW WITH PATIENT UNTIL DISCHARGED.
--- NOTE | 2016-06-23 17:50 | NUR ---
PATIENT SITTING UP IN BED TO EAT SUPPER. VOICES NO NEEDS AT THIS TIME
[2016-06-23 19:54] VITALS: BP 145/75
--- NOTE | 2016-06-23 22:40 | NUR ---
PT. IN BED LYING ON HER LEFT SIDE WITH EYES CLOSED AND RESP. EVEN. CALL LIGHT WITHIN REACH.
--- NOTE | 2016-06-24 00:40 | NUR ---
BABY NURSEJAMEY, CALLED AND REPORTED TO CHARGE NURSE, JAISON, THAT PT'S LEADS NEEDED CHECKING. PT. AWAKENS EASILY FOR ASSESSMENT AND ALL LEADS ARE INTACT. CALLED JAMEY BACK TO VERIFY THAT PT. WAS SHOWING UP ON MONITOR ADEQUATELY. JAMEY REPORTS THAT PT'S. CONDUCTIVITY WAS CHANGING AND HER RHYTHM WAS CHANGING. PT. HAS NO SOB, PAIN, DENIES ANY SYMPTOMS SHE WAS SLEEPING WHEN THIS ALL OCCURRED. WILL GET DIGOXIN LEVEL IN AM TO SEE IF IT IS WNL.
--- NOTE | 2016-06-24 01:05 | NUR ---
PT. IN BED WITH HOB UP FOR COMFORT LYING ON HER LEFT SIDE. EYES ARE CLOSED AND RESP. DEEP AND EVEN. CALL LIGHT WITHIN REACH.
--- NOTE | 2016-06-24 05:11 | NUR ---
PT. IN BED WITH HOB UP FOR COMFORT WITH EYES CLOSED AND RESP. DEEP AND EVEN. PT. REMAINS ON HER LEFT SIDE AT HER REQUEST. CALL LIGHT WITHIN REACH.
[2016-06-24 07:38] LABS: INR 1.41 (0.85-1.17); PROTIME 17.1 SECONDS (11.6-15.0)
--- NOTE | 2016-06-24 08:00 | NUR ---
LYING DOWN.BREAKFAST TRAY AT BEDSIDE.CL IN REACH.
--- NOTE | 2016-06-24 08:15 | NUR ---
PATIENT ALERT/ORIENT X4. SITTING UP IN BED TO EAT BREAKFAST. CALL LIGHT WITHIN REACH. VOICES NO NEEDS AT THIS TIME
[2016-06-24 09:03] VITALS: BP 130/45
--- NOTE | 2016-06-24 10:00 | NUR ---
PATIENT RESTING IN BED. CALL LIGHT WITHIN REACH. THIS NURSE TALKED WITH PATIENT IN REGARDS TO DISCHARGE TO HOME TOMORROW
--- NOTE | 2016-06-24 12:50 | NUR ---
FAMILY, , SON AND DAUGHTER IN LAW IN ROOM. VISITING WITH PATINT.
--- NOTE | 2016-06-24 14:24 | NUR ---
PATIENT USING WHEELED WALKER TO AMBULATE. PATIENT IS SLOW AT AMBULATION. STIFF GAIT. OBESITY. STAND BY ASST
--- NOTE | 2016-06-24 16:50 | NUR ---
PATIENT HELPED WITH SHOWER BY OCCUPATIONAL THERAPIST. LINENS ON BED CHANGED WHILE PATIENT IN SHOWER
--- NOTE | 2016-06-24 19:40 | NUR ---
PT. IN BED WITH HOB UP FOR COMFORT AND IS WATCHING TV. ASSESSMENT COMPLETED. ASSISTED PT. TO BATHROOM TO URINATE. PT. BACK TO BED AND POSITIONED TO COMFORT WITH CALL LIGHT WITHIN REACH. PT. CONTINUES TO HAVE O2 OFF AND HAS OX SAT OF 95%. WILL CHECK PULSE OX LATER TONIGHT TO SEE HOW SHE IS DOING WITH HER O2 OFF.
[2016-06-24 20:57] VITALS: BP 165/58
--- NOTE | 2016-06-24 23:12 | NUR ---
OBTAINED PULSE OX WHILE O2 IS STILL OFF AND GOT 77-82% ON ROOM AIR. PLACE O2 PER N/C ON PT. AT 2L/MIN AND PULSE OX RAISED TO 98%. LEFT O2 OFF AND EXPLAINED TO PT. WHY AND SHE AGREED IT NEEDED TO BE KEPT ON. CALL LIGHT WITHIN REACH.
--- NOTE | 2016-06-25 01:30 | NUR ---
PT. IN BED ON LEFT SIDE WITH HOB UP FOR COMFORT. EYES ARE CLOSED AND RESP. DEEP AND EVEN. O2 REMAINS ON AT 2L/MIN VIA N/C. CALL LIGHT WITHIN REACH.
--- NOTE | 2016-06-25 04:19 | NUR ---
PT. IN BED LYING ON HER LEFT SIDE WITH EYES CLOSED AND RESP. DEEP AND EVEN. O2 AT 2L/MIN VIA N/C REMAINS IN PLACE. CALL LIGHT WITHIN REACH.
--- NOTE | 2016-06-25 05:54 | NUR ---
OXYGEN OFF WHILE PT. WENT TO THE BATHROOM AND BACK TO BED AND POSITIONED TO COMFORT. PULSE OX READING WAS 95% ON ROOM AIR. O2 LEFT OFF AT THIS TIME AND CALL LIGHT IS WITHIN REACH.
[2016-06-25 05:59] LABS: HEMATOCRIT 35.6 % (36.0-48.0); HEMOGLOBIN 10.9 g/dL (12-16); MCH 31.2 pg (26.0-34.0); MCHC 30.6 g/dL (31.0-37.0); MEAN PLATELET VOLUME 10.4 fL (7.4-10.4); PLATELET COUNT 200 10x3/uL (130-400); RBC 3.49 10x6/uL (4.00-5.40); RDW 13.9 % (11.5-14.5); WBC 6.5 10x3/uL (4.8-10.8)
[2016-06-25 06:12] LABS: CALCIUM 8.8 mg/dL (8.5-10.1); CARBON DIOXIDE 39.3 mmol/L (21.0-32.0); CREATININE - SERUM 1.3 mg/dL (0.6-1.3); POTASSIUM - SERUM 4.3 mmol/L (3.5-5.1)
[2016-06-25 06:36] LABS: EOSINOPHILS 1 % (0-7); LYMPHOCYTES 54 % (15-50); MONOCYTES 6 % (2-11); NEUTROPHILS 39 % (40-80)
[2016-06-25 06:38] LABS: PLATELET ESTIMATE NORMAL
[2016-06-25] MEDS ORDERED: COUMADIN10 MG PO (08:25)
[2016-06-25 08:41] VITALS: BP 133/51
--- NOTE | 2016-06-25 10:37 | NUR ---
PT IS STABLE AND BEING DISCHARGED AT THIS TIME. SHE IS TAKING WITH HER HER DISCHARGE PAPERWORK AND ALL OF HER PERSONAL BELONGINGS. SHE WILL BE WHEELED OUT TO AWAITING VEHICLE WHEN SHE LEAVES WITH HER FAMILY IN THEIR PERSONAL VAN.
--- NOTE | 2016-06-25 12:11 | NUR ---
PATIENT DISCHARGING HOME WITH FAMILY TODAY. [facility] WILL FOLLOW WITH PATIENT AT HOME. [facility] WILL SEE PATIENT AT HOME IN 7-10 DAYS. APPOINTMENT: DR. COOL/DANIELA 06/25/16 , DR. SARMIENTO 07/26/16 @ 11:00, DR. CARMICHAEL 07/27/16 @ 10:00. [facility] AND PATIENT CHOICE FORM FOR HOME HEALTH SIGNED , EXPLIANED AND FILED IN CHART. PATIENT EDUCATED ON DEEP BREATHING EXERCISES. PATIENT VOICED UNDERSTANDING. ORDERS FAXED WITH CONFORMATION RECIOEVED
--- NOTE | 2016-07-27 09:41 | DS ---
PATIENT:AARON HUNTER :51 MEDICAL RECORD: [id number] DISCHARGE SUMMARY ADMISSION DATE: 06/11/16 DISCHARGE DATE: 06/25/16 This is a discharge dated 06/25/2016 from inpatient rehab PRIMARY DIAGNOSES: Decreased functional ability and ability to provide activities of daily living secondary to pneumonia. SECONDARY DIAGNOSES: 1. Hyperkalemia. 2. Hyperglycemia. 3. Leukocytosis. 4. Morbid obesity. 5. Diabetes. 6. Hypothyroidism. 7. Hypertension. 8. Seizure disorder. 9. Hyperlipidemia. 10. Fibromyalgia. 11. Atrial fibrillation. HOSPITAL COURSE: Full H&P is located elsewhere on the chart on this 61-year-old female, who was admitted to inpatient rehab for physical therapy and occupational therapy to improve gait, transfer skills, bed mobility, and activities of daily living to a modified independent level. She was evaluated by PT and OT and their plans of care were followed. She required retirement care for observation and assessment and medication administration. She was cooperative with therapies, progressing towards goals. Case management was involved for discharge planning. Fingerstick blood sugars were monitored throughout her hospital stay with appropriate adjustment in medications as needed. Electrolytes were managed by protocol. She was considered stable for discharge on 06/25/2016. DISCHARGE MEDICATIONS: As per discharge medication reconciliation. DISCHARGE DISPOSITION: The patient is discharged home. She will continue her current diet and level of activity and will follow up with primary care in 7-10 days. We will follow up with an INR in 5 days. TRANSINT:[id number] Voice Confirmation ID: [id number] DOCUMENT ID: [id number] Dictated By: BRITANY MCCARTY I have interviewed/examined the above patient and agree with these documented findings. DISCHARGE SUMMARY REPORT [id number] AARON HUNTER JACOB DE LA GARZA MD at 0941 at 1058 CC: [id number] DICTATION DATE: 07/25/16 1732 SUPERVISOR ELECTRONICS ASSEMBLY: 07/25/16 2202 DIS IN 06/25/16 [facility] [address] [id number]
== END 2016-06-25 10:43 | disposition home health service (06) | DRG 193 ==
LOC: D.REHAB 17:27
PROVIDERS: ADMIT Emergency Medicine
DX: J18.8 Other pneumonia, unspecified organism (principal); J96.01 Acute respiratory failure with hypoxia; Z68.43 Body mass index [BMI] 50.0-59.9, adult; E66.01 Morbid (severe) obesity due to excess calories; E87.5 Hyperkalemia; R73.9 Hyperglycemia, unspecified; G40.909 Epilepsy, unspecified, not intractable, without status epilepticus; R53.1 Weakness; R53.83 Other fatigue; I48.2 Chronic atrial fibrillation; I10 Essential (primary) hypertension; D72.829 Elevated white blood cell count, unspecified; I51.7 Cardiomegaly; Z95.0 Presence of cardiac pacemaker; I34.0 Nonrheumatic mitral (valve) insufficiency; M79.7 Fibromyalgia

== ENCOUNTER → 2016-11-04 14:20 | Outpatient (CLI) | payer MEDICARE ==
[~2016-11-04 14:20] MED LIST changes: +COUMADIN10 MG PO
== END | disposition home or self-care (01) ==
LOC: D.CT 10-06 11:30
DX: M54.5 Low back pain (principal)

== ENCOUNTER → 2017-05-18 14:54 | Outpatient (CLI) | payer MEDICARE ==
[2017-05-19 12:17] LABS: IMMUNOGLOBULIN A 308 mg/dL (87-352); IMMUNOGLOBULIN G 1149 mg/dL (700-1600); IMMUNOGLOBULIN M 236 mg/dL (26-217)
[2017-05-23 12:12] LABS: IMMUNOGLOBULIN E 8 IU/mL (0-100)
== END | disposition home or self-care (01) ==
LOC: D.LABREF 14:54
PROVIDERS: Internal Medicine Pulmonary Disease
DX: J44.9 Chronic obstructive pulmonary disease, unspecified (principal)

== ENCOUNTER → 2017-06-06 13:02 | Outpatient (CLI) | payer MEDICARE ==
[2017-06-07 12:18] LABS: IMMUNOGLOBULIN A 286 mg/dL (87-352); IMMUNOGLOBULIN G 972 mg/dL (700-1600); IMMUNOGLOBULIN M 202 mg/dL (26-217)
[2017-06-11 12:11] LABS: IMMUNOGLOBULIN E 9 IU/mL (0-100)
== END | disposition home or self-care (01) ==
LOC: D.RT 13:00
PROVIDERS: Internal Medicine Pulmonary Disease
DX: J44.9 Chronic obstructive pulmonary disease, unspecified (principal)

== ENCOUNTER 2017-06-29 16:29 | Emergency (ER) | payer MEDICARE | END 2017-06-29 18:02 | disposition home or self-care (01) | LOC: D.ER 16:29 | DX: S89.92XA Unspecified injury of left lower leg, initial encounter (principal); X58.XXXA Exposure to other specified factors, initial encounter; Y93.89 Activity, other specified; Y92.89 Other specified places as the place of occurrence of the external cause ==

== ENCOUNTER 2017-09-13 08:00 | Outpatient (CLI) | payer MEDICARE | END 2017-09-13 09:00 | disposition home or self-care (01) | LOC: D.MAMMO 08:00 | DX: Z12.31 Encounter for screening mammogram for malignant neoplasm of breast (principal) ==

== ENCOUNTER 2018-04-17 13:41 | Inpatient (IN) | payer MEDICARE ==
[~2018-04-17] VITALS: Ht 170.2 cm; Wt 140.6 kg
[~2018-04-17 13:41] MED LIST changes: +CARDIZEM CD120 MG PO; -CARDIZEM120 MG PO
[2018-04-17] MEDS ORDERED: LIPITOR20 MG PO (13:49)
[2018-04-17] MEDS ORDERED: ZANAFLEX4 MG PO (13:53)
[2018-04-17] MEDS ORDERED: PROTONIX40 MG PO (13:55)
[2018-04-17] MEDS ORDERED: COUMADIN5 MG (13:57)
[2018-04-17 19:08] LABS: ALBUMIN 3.3 g/dL (3.4-5.0); ANION GAP 15.3 mmol/L (8-16); BILIRUBIN - TOTAL 0.32 mg/dL (0.2-1.3); CALCIUM 9.3 mg/dL (8.5-10.1); CARBON DIOXIDE 26.4 mmol/L (21.0-32.0); CREATININE - SERUM 0.9 mg/dL (0.6-1.3); POTASSIUM - SERUM 4.7 mmol/L (3.5-5.1); PROTEIN - SERUM 7.2 g/dL (6.4-8.2)
[2018-04-17 19:14] LABS: HEMATOCRIT 44.9 % (36.0-48.0); HEMOGLOBIN 15.5 g/dL (12-16); MCH 33.3 pg (26.0-34.0); MCHC 34.5 g/dL (31.0-37.0); MCV 96.6 fL (80.0-100.0); MEAN PLATELET VOLUME 10.5 fL (7.4-10.4); PLATELET COUNT 185 10x3/uL (130-400); RBC 4.65 10x6/uL (4.00-5.40); RDW 14.2 % (11.5-14.5); WBC 16.4 10x3/uL (4.8-10.8)
[2018-04-17 20:14] LABS: INR 1.84 (0.85-1.17); PROTIME 20.6 SECONDS (11.6-15.0)
[2018-04-17 21:20] LABS: LYMPHOCYTES 18 % (15-50); MONOCYTES 9 % (2-11); NEUTROPHILS 73 % (40-80); PLATELET ESTIMATE NORMAL
[2018-04-17 21:30] VITALS: BP 116/62
[2018-04-17] MEDS ORDERED: DEMADEX20 MG PO (22:49)
[2018-04-17] MEDS ORDERED: KLONOPIN1 MG PO (22:51)
[2018-04-17 23:08] VITALS: BP 107/59; BMI 48.7
[2018-04-18 01:32] VITALS: BP 155/54
[2018-04-18 05:23] VITALS: BP 148/64
[2018-04-18 06:07] LABS: BASOPHILS 0.3 % (0-2); EOSINOPHILS 0.7 % (0-7); HEMATOCRIT 40.7 % (36.0-48.0); HEMOGLOBIN 13.2 g/dL (12-16); IMMATURE GRANULOCYTES 0.4 % (0-5); LYMPHOCYTES 32.2 % (15-50); MCH 32.6 pg (26.0-34.0); MCHC 32.4 g/dL (31.0-37.0); MEAN PLATELET VOLUME 10.4 fL (7.4-10.4); MONOCYTES 13.5 % (2-11); NEUTROPHILS 52.9 % (40-80); PLATELET COUNT 220 10x3/uL (130-400); RBC 4.05 10x6/uL (4.00-5.40); RDW 14.3 % (11.5-14.5)
[2018-04-18 06:28] LABS: ALBUMIN 3.1 g/dL (3.4-5.0); ANION GAP 14.9 mmol/L (8-16); BILIRUBIN - TOTAL 0.27 mg/dL (0.2-1.3); CALCIUM 8.9 mg/dL (8.5-10.1); CARBON DIOXIDE 26.7 mmol/L (21.0-32.0); CREATININE - SERUM 1.2 mg/dL (0.6-1.3); POTASSIUM - SERUM 4.6 mmol/L (3.5-5.1); PROTEIN - SERUM 6.9 g/dL (6.4-8.2)
[2018-04-18 06:50] LABS: MCV 100.5 fL (80.0-100.0); WBC 11.1 10x3/uL (4.8-10.8)
[2018-04-18 08:07] VITALS: BP 124/71
[2018-04-18 12:39] VITALS: BP 136/68
[2018-04-18 14:23] VITALS: Ht 170.2 cm; Wt 140.6 kg
--- NOTE | 2018-04-18 15:50 | MORECARE ---
CASE MANAGEMENT DISCHARGE SUMMARY PATIENT: AARON HUNTER [place]: [id number] ADM DATE: 04/18/18 AGE: 63 : 51 SEX: F ROOM/BED: D.2231 AUTHOR: ERNIE YI PHYSICIAN: REFERRING PHYSICIAN: ADOLFO MYLES MD DATE OF SERVICE: 04/18/18 Discharge Plan Patient Name: AARON HUNTER [facility] [facility] 1955 Planned Disposition: Home Anticipated Discharge Date: Discharge Date: Expected LOS: Initial Reviewer: [email or web address] Initial Review Date: 04/17/2018 Generated: 04/18/18 4:50 pm DCPIA - Discharge Planning Initial Assessment Updated by [email or web address]: Maya Ness on 04/18/18 3:48 pm * Is the patient Alert and Oriented? Yes * How many steps to enter\exit or inside your home? 0 RAMP * PCP SILVINA * Pharmacy [facility] * Preadmission Environment Home with Family * ADLs Independent * Equipment Rolling Walker * Other Equipment Has rx for wheelchair from Dr. Jalloh * List name and contact numbers for known caregivers / representatives who currently or will assist patient after discharge: Paramjit [phone] * Verbal permission to speak to the caregivers and representatives has been obtained from the patient. Yes * Additional services required to return to the preadmission environment? No * Can the patient safely return to the preadmission environment? Yes * Has this patient been hospitalized within the prior 30 days at any hospital? No Patient Name: AARON HUNTER Page [phone] at 1550 All edits/amendments must be made on the electronic document DICTATION DATE: 04/18/18 1550 STONECUTTER: ALISE 04/18/18 1550 RPT#: [id number] DC DATE: STATUS: ADM IN [facility] [address] [place] [address] END OF REPORT
--- NOTE | 2018-04-18 16:05 | MORECARE ---
CASE MANAGEMENT DISCHARGE SUMMARY PATIENT: AARON HUNTER [place] UN[place]: [id number] ADM DATE: 04/18/18 AGE: 63 : 51 SEX: F ROOM/BED: D.2231 AUTHOR: [email or web address] PHYSICIAN: REFERRING PHYSICIAN: ADOLFO MYLES MD DATE OF SERVICE: 04/18/18 Discharge Plan Patient Name: AARON HUNTER Facility: [facility]:[place] : 1955 Planned Disposition: Home Anticipated Discharge Date: Discharge Date: Expected LOS: Initial Reviewer: [email or web address] Initial Review Date: 04/17/2018 Generated: 04/18/18 5:04 pm Comments DCP- Discharge Planning Updated by [email or web address]: Maya Ness on 04/18/18 3:[address] Patient Name: AARON HUNTER Admission Status: ER Accout number: [id number] Admission Date: 04-18-2018 : 1955 Admission Diagnosis: Attending: ADOLFO MYLES Current LOS: 1 Anticipated DC Date: Planned Disposition: Home Primary Insurance: MEDICARE A & B Discharge Planning Commen Enrollment Coordinator: Maya NessPatient Name: AARON HUNTER Admission Status: ER Accout number: [id number] Admission Date: 04-18-2018 : 1955 Admission Diagnosis: Attending: ADOLFO MYLES Current LOS: 1 Anticipated DC Date: Planned Disposition: Home Primary Insurance: MEDICARE A & B Discharge Planning Comments: CM met with pt re discharge planning needs. Spouse was present in room for discussion. Pt states she plans to return home upon discharge. She currently uses a walker at home, but states it is worn out. Has a new prescription for Dr. Jalloh for a new walker, as well as a wheelchair but has not gotten. She has also been prescribed outpt physical therapy at [facility] for aquatic therapy per Dr. Jalloh. States her assists her at home with medications, driving. CM will continue to follow and assist with discharge planning/needs. Enrollment Coordinator: Maya Ness DCPIA - Discharge Planning Initial Assessment Updated by [id number]: Maya Ness on 04/18/18 3:48 pm * Is the patient Alert and Oriented? Yes * How many steps to enter\exit or inside your home? 0 RAMP * PCP SILVINA * Pharmacy [facility] * Preadmission Environment Home with Family * ADLs Independent * Equipment Rolling Walker * Other Equipment Has rx for wheelchair from Dr. Jalloh * List name and contact numbers for known caregivers / representatives who currently or will assist patient after discharge: Paramjit [phone] * Verbal permission to speak to the caregivers and representatives has been obtained from the patient. Yes * Additional services required to return to the preadmission environment? No * Can the patient safely return to the preadmission environment? Yes * Has this patient been hospitalized within the prior 30 days at any hospital? No Last DP export: 04/18/18 2:50 p Patient Name: AARON HUNTER Page [phone] at 1605 All edits/amendments must be made on the electronic document DICTATION DATE: 04/18/181603 CONSTRUCTION EQUIPMENT MECHANIC HELPER: ALISE 04/18/181603 RPT#: [id number] DC DATE: STATUS: ADM IN [facility] [address] [place] [address] END OF REPORT
[2018-04-18 21:23] VITALS: BP 152/70
[2018-04-19 01:09] VITALS: BP 140/64
[2018-04-19 04:34] VITALS: BP 188/91
[2018-04-19 05:14] LABS: BASOPHILS 0.3 % (0-2); EOSINOPHILS 0.8 % (0-7); HEMOGLOBIN 13.1 g/dL (12-16); IMMATURE GRANULOCYTES 0.8 % (0-5); LYMPHOCYTES 41.3 % (15-50); MCH 32.6 pg (26.0-34.0); MEAN PLATELET VOLUME 10.8 fL (7.4-10.4); MONOCYTES 9.7 % (2-11); NEUTROPHILS 47.1 % (40-80); PLATELET COUNT 177 10x3/uL (130-400); RBC 4.02 10x6/uL (4.00-5.40); RDW 14.5 % (11.5-14.5); WBC 8.8 10x3/uL (4.8-10.8)
[2018-04-19 05:33] LABS: CALC OSMOLALITY 282 mosm/kg (275-300); CALCIUM 9.1 mg/dL (8.5-10.1); CARBON DIOXIDE 25.3 mmol/L (21.0-32.0); CHLORIDE - SERUM 103 mmol/L (98-107); GLUCOSE 140 mg/dL (74-106); POTASSIUM - SERUM 4.7 mmol/L (3.5-5.1); SODIUM 140 mmol/L (136-145); UREA NITROGEN 18 mg/dL (7-18); eGFR NON AFRICAN AMERICAN 76 mL/min (90-120)
[2018-04-19 05:36] LABS: CREATININE - SERUM 0.8 mg/dL (0.6-1.3)
[2018-04-19 08:39] VITALS: BP 172/84
[2018-04-19 11:28] LABS: APPEARANCE CLEAR (CLEAR); BILIRUBIN NEGATIVE (NEGATIVE); COLOR YELLOW (YELLOW); GLUCOSE NEGATIVE (NEGATIVE); KETONE NEGATIVE (NEGATIVE); NITRITE NEGATIVE (NEGATIVE); PROTEIN NEGATIVE (NEGATIVE); UROBILINOGEN NORMAL (NORMAL)
[2018-04-19 13:17] VITALS: BP 171/87
[2018-04-19 16:49] VITALS: BP 148/79
[2018-04-19 21:34] VITALS: BP 181/82
[2018-04-20 04:58] VITALS: BP 169/82
[2018-04-20 06:18] LABS: BASOPHILS 0.5 % (0-2); EOSINOPHILS 1.8 % (0-7); HEMATOCRIT 38.3 % (36.0-48.0); HEMOGLOBIN 12.7 g/dL (12-16); IMMATURE GRANULOCYTES 0.5 % (0-5); LYMPHOCYTES 33.3 % (15-50); MCH 32.9 pg (26.0-34.0); MCHC 33.2 g/dL (31.0-37.0); MEAN PLATELET VOLUME 10.3 fL (7.4-10.4); MONOCYTES 9.5 % (2-11); NEUTROPHILS 54.4 % (40-80); PLATELET COUNT 196 10x3/uL (130-400); RBC 3.86 10x6/uL (4.00-5.40); RDW 14.2 % (11.5-14.5); WBC 7.9 10x3/uL (4.8-10.8)
[2018-04-20 06:25] LABS: ANION GAP 12.8 mmol/L (8-16); C-REACTIVE PROTEIN 2.5 mg/dL (0.0-0.9); CALCIUM 9.4 mg/dL (8.5-10.1); CARBON DIOXIDE 27.6 mmol/L (21.0-32.0); MCV 99.2 fL (80.0-100.0); POTASSIUM - SERUM 4.4 mmol/L (3.5-5.1)
[2018-04-20 08:45] VITALS: BP 155/82
[2018-04-20 09:19] LABS: ERYTHROCYTE SEDIMENTATION RATE 35 mm/hr (0-30)
[2018-04-20 12:47] VITALS: BP 171/70
[2018-04-20 16:53] VITALS: BP 127/52
[2018-04-20 20:00] VITALS: BP 162/70
[2018-04-21] VITALS: BP 148/76
[2018-04-21 04:00] VITALS: BP 163/83
[2018-04-21 06:06] LABS: BASOPHILS 0.3 % (0-2); EOSINOPHILS 1.4 % (0-7); HEMATOCRIT 37.4 % (36.0-48.0); HEMOGLOBIN 12.2 g/dL (12-16); IMMATURE GRANULOCYTES 0.4 % (0-5); LYMPHOCYTES 28.8 % (15-50); MCH 32.3 pg (26.0-34.0); MCHC 32.6 g/dL (31.0-37.0); MCV 98.9 fL (80.0-100.0); MEAN PLATELET VOLUME 10.3 fL (7.4-10.4); MONOCYTES 8.6 % (2-11); NEUTROPHILS 60.5 % (40-80); PLATELET COUNT 195 10x3/uL (130-400); RBC 3.78 10x6/uL (4.00-5.40); RDW 14.4 % (11.5-14.5)
[2018-04-21 06:24] LABS: ANION GAP 14.4 mmol/L (8-16); CALCIUM 8.8 mg/dL (8.5-10.1); CARBON DIOXIDE 26.9 mmol/L (21.0-32.0); POTASSIUM - SERUM 4.3 mmol/L (3.5-5.1)
[2018-04-21] MEDS ORDERED: HYDROCODON-ACE1 EA10 PO (09:23)
[2018-04-21] MEDS ORDERED: MIRALAX17 GM PO (09:24)
[2018-04-21 09:33] VITALS: BP 153/72
--- NOTE | 2018-04-21 10:46 | MORECARE ---
CASE MANAGEMENT DISCHARGE SUMMARY PATIENT: AARON HUNTER UNIT: [id number] ADM DATE: 04/18/18 AGE: 63 : 53 SEX: F ROOM/BED: D[facility] AUTHOR: ERNIE YI PHYSICIAN: REFERRING PHYSICIAN: ADOLFO MYLSE MD DATE OF SERVICE: 04/21/18 Discharge Plan Patient Name: AARON HUNTER Facility: [facility]:[place] : 1955 Planned Disposition: Home Anticipated Discharge Date: Discharge Date: Expected LOS: Initial Reviewer: [email or web address] Initial Review Date: 04/17/2018 Generated: 04/21/18 11:46 am Comments DCP- Discharge Planning Updated by [email or web address]: Bertha Kothari on 04/21/18 9:[address] Patient Name: AARON HUNTER Encounter No: [id number] : 1955 Primary Insurance: MEDICARE A & B Anticipated DC Date: Planned Disposition: Home External Planned Provider: : DCP follow-up note: Patient and family in agreement with discharge plan. has gotten walker and transport wheelchair from [employer]. No changes to plan. Case management will follow and assist as needed. Bertha Kothari DCP- Discharge Planning Updated by [email or web address]: Maya Ness on 04/18/18 3:[address] Patient Name: AARON HUNTER Admission Status: ER Accout number: [id number] Admission Date: 04-18-2018 : 1955 Admission Diagnosis: Attending: ADOLFO MYLES Current LOS: 1 Anticipated DC Date: Planned Disposition: Home Primary Insurance: MEDICARE A & B Discharge Planning Commen Wheel Polisher: Maya NessPatient Name: AARON HUNTER Admission Status: ER Accout number: [id number] Admission Date: 04-18-2018 : 1955 Admission Diagnosis: Attending: ADOLFO MYLES Current LOS: 1 Anticipated DC Date: Planned Disposition: Home Primary Insurance: MEDICARE A & B Discharge Planning Comments: CM met with pt re discharge planning needs. Spouse was present in room for discussion. Pt states she plans to return home upon discharge. She currently uses a walker at home, but states it is worn out. Has a new prescription for Dr. Jalloh for a new walker, as well as a wheelchair but has not gotten. She has also been prescribed outpt physical therapy at [facility] for aquatic therapy per Dr. Jalloh. States her assists her at home with medications, driving. CM will continue to follow and assist with discharge planning/needs. Wheel Polisher: Maya Ness DCPIA - Discharge Planning Initial Assessment Updated by [email or web address]: Maya Ness on 04/18/18 3:48 pm * Is the patient Alert and Oriented? Yes * How many steps to enter\exit or inside your home? 0 RAMP * PCP SILVINA * Pharmacy [facility] * Preadmission Environment Home with Family * ADLs Independent * Equipment Rolling Walker * Other Equipment Has rx for wheelchair from Dr. Jalloh * List name and contact numbers for known caregivers / representatives who currently or will assist patient after discharge: Paramjit [phone] * Verbal permission to speak to the caregivers and representatives has been obtained from the patient. Yes * Additional services required to return to the preadmission environment? No * Can the patient safely return to the preadmission environment? Yes * Has this patient been hospitalized within the prior 30 days at any hospital? No Coverage Notice Reviewer: [email or web address] - Bertha Kothari Notice Issued Date-Time: 04/21/2018 10:36 Notice Type: IM Discharge Notice Notice Delivered To: Patient Relationship to Patient: Self Gameplay Programmer Name: Delivery Method: HAND - Hand Delivered Jen Days: Prior Verbal Notification: Recipient Understood Notice: Yes Recipient Signature: Yes Med Rec Note Co-signed by Attending: Coverage Notice Comment: IMM explained, signed by per patient request , original given, copy placed in MR Last DP export: 04/18/18 3:04 p Patient Name: AARON HUNTER Page 42554 at 1046 All edits/amendments must be made on the electronic document DICTATION DATE: 04/21/18 1046 ORIENTATION AND MOBILITY INSTRUCTOR: ALISE 04/21/18 1046 RPT#: [id number] DC DATE: STATUS: ADM IN [facility] [address] [place] [address] END OF REPORT
--- NOTE | 2018-04-25 07:04 | MORECARE ---
CASE MANAGEMENT DISCHARGE SUMMARY PATIENT: AARON HUNTER UNIT: [id number] ADM DATE: 04/18/18 AGE: 63 : 53 SEX: F ROOM/BED: D[facility] AUTHOR: ERNIE YI PHYSICIAN: REFERRING PHYSICIAN: ADOLFO MYLES MD DATE OF SERVICE: 04/25/18 Discharge Plan Patient Name: AARON HUNTER Facility: [facility]:[place] : 1955 Planned Disposition: Home Anticipated Discharge Date: Discharge Date: 04/21/2018 Expected LOS: 0 Initial Reviewer: [email or web address] Initial Review Date: 04/17/2018 Generated: 04/25/18 8:04 am Comments DCP- Discharge Planning Updated by [email or web address]: Bertha Kothari on 04/21/18 9:[address] Patient Name: AARON HUNTER Encounter No: [id number] : 1955 Primary Insurance: MEDICARE A & B Anticipated DC Date: Planned Disposition: Home External Planned Provider: : DCP follow-up note: Patient and family in agreement with discharge plan. has gotten walker and transport wheelchair from [employer]. No changes to plan. Case management will follow and assist as needed. Bertha Kothari DCP- Discharge Planning Updated by [email or web address]: Maya Ness on 04/18/18 3:[address] Patient Name: AARON HUNTER Admission Status: ER Accout number: [id number] Admission Date: 04-18-2018 : 1955 Admission Diagnosis: Attending: ADOLFO MYLES Current LOS: 1 Anticipated DC Date: Planned Disposition: Home Primary Insurance: MEDICARE A & B Discharge Planning Commen Survey Research Teacher: Maya NessPatient Name: AARON HUNTER Admission Status: ER Accout number: [id number] Admission Date: 04-18-2018 : 1955 Admission Diagnosis: Attending: ADOLFO MYLES Current LOS: 1 Anticipated DC Date: Planned Disposition: Home Primary Insurance: MEDICARE A & B Discharge Planning Comments: CM met with pt re discharge planning needs. Spouse was present in room for discussion. Pt states she plans to return home upon discharge. She currently uses a walker at home, but states it is worn out. Has a new prescription for Dr. Jalloh for a new walker, as well as a wheelchair but has not gotten. She has also been prescribed outpt physical therapy at [facility] for aquatic therapy per Dr. Jalloh. States her assists her at home with medications, driving. CM will continue to follow and assist with discharge planning/needs. Survey Research Teacher: Maya Ness DCPIA - Discharge Planning Initial Assessment Updated by [email or web address]: Maya Ness on 04/18/18 3:48 pm * Is the patient Alert and Oriented? Yes * How many steps to enter\exit or inside your home? 0 RAMP * PCP SILVINA * Pharmacy [facility] * Preadmission Environment Home with Family * ADLs Independent * Equipment Rolling Walker * Other Equipment Has rx for wheelchair from Dr. Jalloh * List name and contact numbers for known caregivers / representatives who currently or will assist patient after discharge: , Paramjit [phone] * Verbal permission to speak to the caregivers and representatives has been obtained from the patient. Yes * Additional services required to return to the preadmission environment? No * Can the patient safely return to the preadmission environment? Yes * Has this patient been hospitalized within the prior 30 days at any hospital? No Coverage Notice Reviewer: [id number] Sy Kothari Notice Issued Date-Time: 04/21/2018 10:36 Notice Type: IM Discharge Notice Notice Delivered To: Patient Relationship to Patient: Self Electronic Die Maker Name: Delivery Method: HAND - Hand Delivered Jen Days: Prior Verbal Notification: Recipient Understood Notice: Yes Recipient Signature: Yes Med Rec Note Co-signed by Attending: Coverage Notice Comment: IMM explained, signed by per patient request , original given, copy placed in MR Last DP export: 04/21/18 9:46 am Patient Name: AARON HUNTER Page [phone] at 0704 All edits/amendments must be made on the electronic document DICTATION DATE: 04/25/18703 RESIDENTIAL RECYCLE DRIVER: ALISE 04/25/18703 RPT#: [id number] DC DATE:04/21/18 STATUS: DIS IN [facility] [address] [place] [address] END OF REPORT
== END 2018-04-21 14:28 | disposition home or self-care (01) | DRG 92 ==
LOC: D.ER 13:41 → D.MS 19:02 → OBSVTIME 19:02 → D.EDHOLD 19:02 → D.MS 23:11
PROVIDERS: Family Medicine; ADMIT Internal Medicine Nephrology
DX: G89.4 Chronic pain syndrome (principal); E66.2 Morbid (severe) obesity with alveolar hypoventilation; Z68.42 Body mass index [BMI] 45.0-49.9, adult; M54.5 Low back pain; S09.90XA Unspecified injury of head, initial encounter; W19.XXXA Unspecified fall, initial encounter; S00.11XA Contusion of right eyelid and periocular area, initial encounter; S05.11XA Contusion of eyeball and orbital tissues, right eye, initial encounter; I48.91 Unspecified atrial fibrillation; I10 Essential (primary) hypertension; E66.01 Morbid (severe) obesity due to excess calories; R33.9 Retention of urine, unspecified

== ENCOUNTER 2018-06-01 13:05 | Inpatient (IN) | payer MEDICARE ==
[2018-06-01] VITALS (15 sets, daily range): BP systolic 74–141; BP diastolic 36–75; BMI 52.7
[~2018-06-01] VITALS: Ht 170.2 cm; Wt 152.8 kg
[~2018-06-01 13:05] MED LIST changes: +COUMADIN5 MG; +HYDROCODON-ACE1 EA10 PO; +LIPITOR20 MG PO; +MIRALAX17 GM PO; +PROTONIX40 MG PO; +ZANAFLEX4 MG PO
[2018-06-01 13:41] LABS: BASOPHILS 0.5 % (0-2); EOSINOPHILS 1.4 % (0-7); HEMATOCRIT 40.6 % (36.0-48.0); HEMOGLOBIN 13.2 g/dL (12-16); IMMATURE GRANULOCYTES 0.3 % (0-5); LYMPHOCYTES 40.1 % (15-50); MCH 33.1 pg (26.0-34.0); MCHC 32.5 g/dL (31.0-37.0); MCV 101.8 fL (80.0-100.0); MEAN PLATELET VOLUME 10.5 fL (7.4-10.4); MONOCYTES 8.6 % (2-11); NEUTROPHILS 49.1 % (40-80); RBC 3.99 10x6/uL (4.00-5.40); RDW 14.7 % (11.5-14.5)
[2018-06-01 13:44] LABS: PLATELET COUNT 238 10x3/uL (130-400)
[2018-06-01 13:46] LABS: APTT 36.4 SECONDS (22.8-39.4); INR 2.09 (0.85-1.17); PROTIME 22.8 SECONDS (11.6-15.0)
--- NOTE | 2018-06-01 13:55 | NUR ---
PT LEAVING ED VIA STRETCHER FOR ORDERED CT SCAN AT THIS TIME. IV BOLUS X2 INFUSING WITHOUT SIGNS OF INFILTRATION. PT REMAINS LIGHTLY DROWSY, BUT ORIENTED X4.
[2018-06-01 13:57] LABS: ALBUMIN 3.3 g/dL (3.4-5.0); ALKALINE PHOSPHATASE 49 U/L (46-116); ALT (SGPT) 23 U/L (10-68); BILIRUBIN - TOTAL 0.21 mg/dL (0.2-1.3); CALC OSMOLALITY 282 mosm/kg (275-300); CALCIUM 9.1 mg/dL (8.5-10.1); CARBON DIOXIDE 24.6 mmol/L (21.0-32.0); CHLORIDE - SERUM 100 mmol/L (98-107); CREATININE - SERUM 2.3 mg/dL (0.6-1.3); GLUCOSE 162 mg/dL (74-106); POTASSIUM - SERUM 4.8 mmol/L (3.5-5.1); PROTEIN - SERUM 7.3 g/dL (6.4-8.2); SODIUM 138 mmol/L (136-145); UREA NITROGEN 22 mg/dL (7-18); eGFR NON AFRICAN AMERICAN 23 mL/min (90-120)
[2018-06-01 14:09] LABS: CKMB 0.5 U/L (0.0-3.6); CREATINE KINASE 36 UL (21-215); MAGNESIUM - SERUM 1.8 mg/dL (1.8-2.4); TROPONIN-I < 0.017 ng/mL (0.000-0.060)
--- NOTE | 2018-06-01 14:30 | NUR ---
SPOKE WITH STEVE IN PHARMACY, INSTRUCTED TO INITATE ORDERED NARCAN INFUSION AT 100ML/HOUR.
--- NOTE | 2018-06-01 14:38 | NUR ---
NOTIFIED BY LAB OF ELEVATED LACTIC ACID OF 6.2. EDP NOTIFIED.
[2018-06-01 15:32] LABS: APPEARANCE SL CLDY (CLEAR); BILIRUBIN 1+ (NEGATIVE); COLOR DK YELLOW (YELLOW); GLUCOSE NEGATIVE (NEGATIVE); KETONE NEGATIVE (NEGATIVE); NITRITE NEGATIVE (NEGATIVE); PROTEIN 1+ mg/dL (NEGATIVE); SPECIFIC GRAVITY 1.015 (1.005-1.020); UROBILINOGEN NORMAL (NORMAL)
[2018-06-01 15:34] LABS: RED CELLS - URINE 0-5 /hpf (0-5); WHITE CELLS - URINE 0-5 /hpf (0-5)
[2018-06-01 15:35] LABS: BACTERIA MODERATE /hpf (NONE SEEN); EPITHELIAL CELLS 0-5 /hpf (0-5)
[2018-06-01 15:36] LABS: AMORPHOUS SEDIMENT >1+ /lpf (NONE SEEN); MUCUS <1+ /lpf (NONE SEEN)
--- NOTE | 2018-06-01 16:47 | NUR ---
EDP NOTIFIED OF CURRENT BP OF 90/51. NURSE INSTRUCTED TO INITIATE NOREPINEPHRINE.
--- NOTE | 2018-06-01 16:57 | NUR ---
NURSE INSTRUCTED BY EDP TO ADMINISTER FLUIDS PER SEPSIS PROTOCOL AT PT'S IDEAL BODY WEIGHT OF 70KG. TOTAL OF 2100ML OF IV FLUIDS TO BE ADMINISTERED. LR LITER X2 BOLUS COMPLETE. WILL ADMINISTER 100ML OF NS TO COMPLETE REQUIRED FLUID BOLUS. PT ALERT AND ORIENTED. RESPIRATIONS EVEN AND UNLABORED. DENIES ANY NEEDS.
--- NOTE | 2018-06-01 17:40 | NUR ---
PT'S BP 161/81, EDP NOTIFIED, NURSE INSTRUCTED TO TITRATE DOWN NOREPINEPHRINE TO 4MCG/MIN.
[2018-06-01 18:24] LABS: UDS - AMPHET NEGATIVE QUAL (NEGATIVE); UDS - BARB NEGATIVE QUAL (NEGATIVE); UDS - BENZO POSITIVE QUAL (NEGATIVE); UDS - COCAINE NEGATIVE QUAL (NEGATIVE); UDS - OPIATE POSITIVE QUAL (NEGATIVE); UDS - PCP NEGATIVE QUAL (NEGATIVE); UDS - THC NEGATIVE QUAL (NEGATIVE)
--- NOTE | 2018-06-01 19:10 | NUR ---
REC'D TO CARE - SEE ADMISSION HYDROSTATIC TUBING TESTER AND HISTORY. VSS. IVFS INFUSING TO PIV X 2, DSGS C/D/I - SEE FLOWSHEET. PT AWAKE AND ANSWERING QUESTIONS APPROP. ICU MONITORS ESTAB AND ALARMS ON.
--- NOTE | 2018-06-01 19:17 | NUR ---
DR. MYLES IN TO SEE PT, WEANING LEVOPHED GTT. PT AWAKE AND ANSWERING ALL QUESTIONS APPROP, RECALLS EVENTS OF THE DAY. CM - PACED.
[2018-06-01] MEDS ORDERED: HYDROCODON-ACE1 EAC2 PO (21:56)
[2018-06-01] MEDS ORDERED: COUMADIN2.5 MG PO (22:08)
--- NOTE | 2018-06-01 22:21 | NUR ---
HOME MEDS REVIEWED WITH PT AND - SEE MED REC. PT WATCHING TV, ATE 1/2 SANDWICH, VSS. NARCAN GTT AND LEVOPHED REMAIN OFF. ALARMS ON.
--- NOTE | 2018-06-01 23:37 | NUR ---
REASSESSMENT PER FLOWSHEET, NO ACUTE CHANGES. PT AWAKENS EASILY, VSS. C/L IN REACH.
[2018-06-02] VITALS (27 sets, daily range): BP systolic 105–179; BP diastolic 38–117; Ht 170.2 cm; Wt 152.8 kg
--- NOTE | 2018-06-02 01:14 | NUR ---
RESTING WITH EYES CLOSED, VSS. NO SIGN OF DISTRESS.
--- NOTE | 2018-06-02 03:30 | NUR ---
REASSESSMENT PER FLOWSHEET, NO ACUTE CHANGES. PT AWAKENS EASILY, REPOSITIONS SELF IN BED. VSS.. C/L IN REACH.
[2018-06-02 03:33] LABS: HEMATOCRIT 38.6 % (36.0-48.0); HEMOGLOBIN 12.5 g/dL (12-16); MCHC 32.4 g/dL (31.0-37.0); MCV 101.8 fL (80.0-100.0); MEAN PLATELET VOLUME 10.9 fL (7.4-10.4); RBC 3.79 10x6/uL (4.00-5.40); RDW 14.7 % (11.5-14.5); WBC 8.7 10x3/uL (4.8-10.8)
[2018-06-02 03:34] LABS: PLATELET COUNT 186 10x3/uL (130-400)
[2018-06-02 03:51] LABS: ALBUMIN 2.7 g/dL (3.4-5.0); ANION GAP 11.6 mmol/L (8-16); BILIRUBIN - TOTAL 0.24 mg/dL (0.2-1.3); CALCIUM 8.3 mg/dL (8.5-10.1); CARBON DIOXIDE 26.7 mmol/L (21.0-32.0); POTASSIUM - SERUM 5.3 mmol/L (3.5-5.1); PROTEIN - SERUM 6.3 g/dL (6.4-8.2)
[2018-06-02 03:54] LABS: CREATININE - SERUM 1.4 mg/dL (0.6-1.3)
[2018-06-02 04:04] LABS: BASOPHILS 1 % (0-2); EOSINOPHILS 1 % (0-7); LYMPHOCYTES 26 % (15-50); MONOCYTES 11 % (2-11); NEUTROPHILS 58 % (40-80); PLATELET ESTIMATE NORMAL
[2018-06-02] MEDS ORDERED: CRESTOR20 MG PO (04:20)
--- NOTE | 2018-06-02 05:14 | NUR ---
PT REPOSITIONED UP IN BED, RIVER-CARE DONE.
--- NOTE | 2018-06-02 10:20 | NUR ---
0700 AWAKE ALERT PULLED UP IN BED CELL PHONE IN REACH ASSESSMENT COMPLETE
--- NOTE | 2018-06-02 10:20 | NUR ---
0900 BREAKFAST COMPLETE APPETITE EXCELLENT DENIES PAIN REPOSITOED IN BED
--- NOTE | 2018-06-02 14:36 | MORECARE ---
CASE MANAGEMENT DISCHARGE SUMMARY PATIENT: AARON BOWEN CORINNE UNIT: [id number] ADM DATE: 06/01/18 AGE: 63 : 53 SEX: F ROOM/BED: D.2304 AUTHOR: ERNIE YI PHYSICIAN: REFERRING PHYSICIAN: ADOLFO MYLES MD DATE OF SERVICE: 06/02/18 Discharge Plan Patient Name: AARON BOWEN [facility] [facility] 1955 Planned Disposition: Home Anticipated Discharge Date: Discharge Date: Expected LOS: Initial Reviewer: [email or web address] Initial Review Date: 06/02/2018 Generated: 06/02/18 3:36 pm DCPIA - Discharge Planning Initial Assessment Updated by [email or web address]: Marah Stahl on 06/02/18 2:33 pm * Is the patient Alert and Oriented? Yes * How many steps to enter\exit or inside your home? ramp * PCP Jalloh * Pharmacy [facility] * Preadmission Environment Home with Family * ADLs Independent * Other Equipment walker, wheelchair, bsc * List name and contact numbers for known caregivers / representatives who currently or will assist patient after discharge: Wicho Bowen - spouse- [phone] * Verbal permission to speak to the caregivers and representatives has been obtained from the patient. Yes * Please name any agencies selected above. Previously had [facility] . he states that she was suppose to at [facility] for physical therapy on Tuesday (water therapy) * Additional services required to return to the preadmission environment? No * Can the patient safely return to the preadmission environment? Yes * Has this patient been hospitalized within the prior 30 days at any hospital? Yes Patient Name: AARON BOWEN Page 74380 at 1436 All edits/amendments must be made on the electronic document DICTATION DATE: 06/02/181434 MDS RN: ALISE 06/02/181434 RPT#: [id number] DC DATE: STATUS: ADM IN [facility] [address] [place] [address] END OF REPORT
--- NOTE | 2018-06-02 14:47 | NUR ---
1100 VOICES NO COMPLAINTS VISITING WITH SPOUSE AND SON DENIES SOB
--- NOTE | 2018-06-02 14:49 | MORECARE ---
CASE MANAGEMENT DISCHARGE SUMMARY PATIENT: AARON BOWEN SANDY UNIT: [id number] ADM DATE: 06/01/18 AGE: 63 : 51 SEX: F ROOM/BED: D.2304 AUTHOR: KASSIDY,DOC PHYSICIAN: REFERRING PHYSICIAN: ADOLFO MYLES MD DATE OF SERVICE: 06/02/18 Discharge Plan Patient Name: AARON BOWEN Facility: [facility]:[place] : 1955 Planned Disposition: Home Anticipated Discharge Date: Discharge Date: Expected LOS: Initial Reviewer: [email or web address] Initial Review Date: 06/02/2018 Generated: 06/02/18 3:49 pm Comments DCP- Discharge Planning Updated by [email or web address]: Marah Stahl on 06/02/18 1:[address] Patient Name: AARON BOWEN Admission Status: ER Accout number: [id number] Admission Date: 06-01-2018 : 1955 Admission Diagnosis: Attending: ADOLFO MYLES Current LOS: 1 Anticipated DC Date: Planned Disposition: Home Primary Insurance: MEDICARE A & B Discharge Planning Comments: CM met with patient and son at bedside after obtaining verbal consent. Patient states she lives at home with family and plans to return upon discharge. Patient states she has a ramp, walker, wheelchair, bedside commode and a seat in her shower. Patient states that she previously had [facility] and if needed then she would select them again. Patient states that she had just got it set up for water therapy @ [facility] and is suppose to start Tuesday. Patient denies any current discharge planning needs. CM will continue to follow and assist as needed with discharge planning / needs. Clinic Receptionist: Marah Stahl DCPIA - Discharge Planning Initial Assessment Updated by [email or web address]: Marah Stahl on 06/02/18 2:33 pm * Is the patient Alert and Oriented? Yes * How many steps to enter\exit or inside your home? ramp * PCP Jalloh * Pharmacy [facility] * Preadmission Environment Home with Family * ADLs Independent * Other Equipment walker, wheelchair, bsc * List name and contact numbers for known caregivers / representatives who currently or will assist patient after discharge: Wicho Bowen - [facility]- [phone] * Verbal permission to speak to the caregivers and representatives has been obtained from the patient. Yes * Please name any agencies selected above. Previously had [facility]. he states that she was suppose to at [facility] for physical therapy on Tuesday (water therapy) * Additional services required to return to the preadmission environment? No * Can the patient safely return to the preadmission environment? Yes * Has this patient been hospitalized within the prior 30 days at any hospital? Yes Last DP export: 06/02/18 1:36 p Patient Name: AARON BOWEN Page 21065 at 1449 All edits/amendments must be made on the electronic document DICTATION DATE: 06/02/181448 RN UTILIZATION MANAGEMENT UM: ALISE 06/02/181448 RPT#: [id number] DC DATE: STATUS: ADM IN [facility] [address] [place] [address] END OF REPORT
--- NOTE | 2018-06-02 14:50 | NUR ---
1300 APPETITE GOOD NEURO INTACT GENERALIZED WEAKNESS
--- NOTE | 2018-06-02 18:51 | NUR ---
1700 WATCHING TV AND TALKING ON CELL. NO DISTRESS NOTED
--- NOTE | 2018-06-02 18:51 | NUR ---
1500 FAMILY REMAINS AT BEDSIDE VISITING WITH PATIENT
--- NOTE | 2018-06-02 19:04 | NUR ---
PT CARE RECEIVED - SHIFT ASSESSMENT COMPLETED AND PATIENT REPOSITIONED - PARTIAL LINEN CHANGE COMPLETED. PT AWAKE ALERT AND ORIENTED, DENIES NEEDS AT THIS TIME. ELEVATED SYSTOLIC BP NOTED. CPOC
--- NOTE | 2018-06-02 20:50 | NUR ---
PT RECEIVED HS MEDS, DENIES NEEDS AT THIS TIME
--- NOTE | 2018-06-02 23:10 | NUR ---
REASSESSMENT COMPLETED SEE FLOWSHEET
[2018-06-03] VITALS (7 sets, daily range): BP systolic 155–177; BP diastolic 68–83
--- NOTE | 2018-06-03 01:15 | NUR ---
PATIENT OXYGEN DESATURATION MID 80'S PLACED ON 2L NC AT THIS TIME PER RT
--- NOTE | 2018-06-03 04:23 | NUR ---
PATIENT AWAKE, DENIES NEEDS CPOC
--- NOTE | 2018-06-03 05:40 | NUR ---
PT RESTING COMFORTABLY, EASILY ROUSED, DENIES NEEDS AT THIS TIME
[2018-06-03] MEDS ORDERED: LEVOFLOXAC250 MG/50 IV (11:41)
[2018-06-03] MEDS ORDERED: COZAAR50 MG PO (11:42)
--- NOTE | 2018-06-03 13:43 | NUR ---
1320: SALINE LOCK X 2 DC'D. 1335: ALETA KNAPP'Nicole.
--- NOTE | 2018-06-03 14:36 | NUR ---
1422: DISCHARGE INSTRUCTIONS REVIEWED WITH PATIENT. 1430: DISCHARGED. WHEELED TO ER TO SIT WITH WHO IS BEING ADMITTED. STATES HER SON WILL COME AND PICK HER UP WHEN HE GETS OFF WORK.
--- NOTE | 2018-06-03 16:13 | MORECARE ---
CASE MANAGEMENT DISCHARGE SUMMARY PATIENT: AARON BOWEN OCALA UNIT: [id number] ADM DATE: 06/01/18 AGE: 63 : 51 SEX: F ROOM/BED: D.2304 AUTHOR: KASSIDY,DOC PHYSICIAN: REFERRING PHYSICIAN: ADOLFO MYLES MD DATE OF SERVICE: 06/03/18 Discharge Plan Patient Name: AARON BOWEN Facility: [facility]:[place] : 1955 Planned Disposition: Home Anticipated Discharge Date: 06/03/18 Discharge Date: 06/03/2018 Expected LOS: 2 Initial Reviewer: [email or web address] Initial Review Date: 06/02/2018 Generated: 06/03/18 5:12 pm Comments DCP- Discharge Planning Updated by [email or web address]: Prisca Aleman on 06/03/18 3:[address] DISCHARGED TO HOME. HER SON PROVIDED TRANSPORTATION. HER WAS ADMITTED TO ACUTE INPATIENT CARE. DCP- Discharge Planning Updated by [id number]: Marah Stahl on 06/02/18 1:[address] Patient Name: AARON BOWEN Admission Status: ER Accout number: [id number] Admission Date: 06-01-2018 : 1955 Admission Diagnosis: Attending: ADOLFO MYLES Current LOS: 1 Anticipated DC Date: Planned Disposition: Home Primary Insurance: MEDICARE A & B Discharge Planning Comments: CM met with patient and son at bedside after obtaining verbal consent. Patient states she lives at home with family and plans to return upon discharge. Patient states she has a ramp, walker, wheelchair, bedside commode and a seat in her shower. Patient states that she previously had [facility] and if needed then she would select them again. Patient states that she had just got it set up for water therapy @ [facility] and is suppose to start Tuesday. Patient denies any current discharge planning needs. CM will continue to follow and assist as needed with discharge planning / needs. Customer Consulting Manager: Marah Stahl DCPIA - Discharge Planning Initial Assessment Updated by [email or web address]: Marah Stahl on 06/02/18 2:33 pm * Is the patient Alert and Oriented? Yes * How many steps to enter\exit or inside your home? ramp * PCP Jalloh * Pharmacy [facility] * Preadmission Environment Home with Family * ADLs Independent * Other Equipment walker, wheelchair, bsc * List name and contact numbers for known caregivers / representatives who currently or will assist patient after discharge: Wicho Bowen - [facility]- [phone] * Verbal permission to speak to the caregivers and representatives has been obtained from the patient. Yes * Please name any agencies selected above. Previously had [facility] . he states that she was suppose to at [facility] for physical therapy on Tuesday (water therapy) * Additional services required to return to the preadmission environment? No * Can the patient safely return to the preadmission environment? Yes * Has this patient been hospitalized within the prior 30 days at any hospital? Yes Last DP export: 06/02/18 1:49 p Patient Name: AARON BOWEN Page [phone] at 1613 All edits/amendments must be made on the electronic document DICTATION DATE: 06/03/181611 PILE DRIVING SUPERVISOR: ALISE 06/03/18 161 RPT#: [id number] DC DATE:06/03/18 STATUS: DIS IN [facility] [address] [place] [address] END OF REPORT
--- NOTE | 2018-06-05 09:56 | MORECARE ---
CASE MANAGEMENT DISCHARGE SUMMARY PATIENT: AARON BOWEN REBECCA UNIT: [id number] ADM DATE: 06/01/18 AGE: 63 : 51 SEX: F ROOM/BED: D.2304 AUTHOR: KASSIDY,DOC PHYSICIAN: REFERRING PHYSICIAN: ADOLFO MYLES MD DATE OF SERVICE: 06/05/18 Discharge Plan Patient Name: AARON BOWEN Facility: [facility]:[place] : 1955 Planned Disposition: Home Anticipated Discharge Date: 06/03/18 Discharge Date: 06/03/2018 Expected LOS: 2 Initial Reviewer: [email or web address] Initial Review Date: 06/02/2018 Generated: 06/05/18 10:56 am Comments DCP- Discharge Planning Updated by [email or web address]: Prisca Aleman on 06/03/18 3:[address] DISCHARGED TO HOME. HER SON PROVIDED TRANSPORTATION. HER WAS ADMITTED TO ACUTE INPATIENT CARE. DCP- Discharge Planning Updated by [email or web address]: Marah Stahl on 06/02/18 1:[address] Patient Name: AARON BOWEN Admission Status: ER Accout number: [id number] Admission Date: 06-01-2018 : 1955 Admission Diagnosis: Attending: ADOLFO MYLES Current LOS: 1 Anticipated DC Date: Planned Disposition: Home Primary Insurance: MEDICARE A & B Discharge Planning Comments: CM met with patient and son at bedside after obtaining verbal consent. Patient states she lives at home with family and plans to return upon discharge. Patient states she has a ramp, walker, wheelchair, bedside commode and a seat in her shower. Patient states that she previously had [facility] and if needed then she would select them again. Patient states that she had just got it set up for water therapy @ [facility] and is suppose to start Tuesday. Patient denies any current discharge planning needs. CM will continue to follow and assist as needed with discharge planning / needs. Thread Drawer: Marah Stahl DCPIA - Discharge Planning Initial Assessment Updated by [email or web address]: Marah Stahl on 06/02/18 2:33 pm * Is the patient Alert and Oriented? Yes * How many steps to enter\exit or inside your home? ramp * PCP Jalloh * Pharmacy [facility] * Preadmission Environment Home with Family * ADLs Independent * Other Equipment walker, wheelchair, bsc * List name and contact numbers for known caregivers / representatives who currently or will assist patient after discharge: Wicho Bowen - [facility]- [phone] * Verbal permission to speak to the caregivers and representatives has been obtained from the patient. Yes * Please name any agencies selected above. Previously had [facility] . he states that she was suppose to at [facility] for physical therapy on Tuesday (water therapy) * Additional services required to return to the preadmission environment? No * Can the patient safely return to the preadmission environment? Yes * Has this patient been hospitalized within the prior 30 days at any hospital? Yes Last DP export: 06/03/18 3:12 p Patient Name: AARON BOWEN Page 05510 at 0956 All edits/amendments must be made on the electronic document DICTATION DATE: 06/05/18955 DIE INSPECTOR: ALISE 06/05/18955 RPT#: [id number] DC DATE:06/03/18 STATUS: DIS IN [facility] [address] [place] [address] END OF REPORT
== END 2018-06-03 14:30 | disposition home or self-care (01) | DRG 918 ==
LOC: D.ER 13:05 → D.EDHOLD 17:38 → D.ICU 17:38
PROVIDERS: Family Medicine; ADMIT Internal Medicine Nephrology; ATTEND Internal Medicine Nephrology
DX: T40.601A Poisoning by unspecified narcotics, accidental (unintentional), initial encounter (principal); N39.0 Urinary tract infection, site not specified; N17.9 Acute kidney failure, unspecified; E87.2 Acidosis; I95.9 Hypotension, unspecified; E03.9 Hypothyroidism, unspecified; I10 Essential (primary) hypertension; R55 Syncope and collapse; R53.1 Weakness

== ENCOUNTER 2019-01-02 14:14 | Emergency (ER) | payer MEDICARE ==
[~2019-01-02] VITALS: Ht 170.2 cm; Wt 136.1 kg
[~2019-01-02 14:14] MED LIST changes: +COUMADIN2.5 MG PO; +CRESTOR20 MG PO; +HYDROCODON-ACE1 EAC2 PO; +LEVOFLOXAC250 MG/50 IV; -LIPITOR20 MG PO; +LIPITOR40 MG PO; -LOPRESSOR25 MG PO; +METOPROLOL TART50 MG PO
[2019-01-02 14:28] VITALS: Ht 170.2 cm; Wt 136.1 kg
[2019-01-02] MEDS ORDERED: HYDROCODONE-A1 UDTA2 PO (15:06)
[2019-01-02 18:16] VITALS: BP 136/85
== END 2019-01-02 18:17 | disposition home or self-care (01) ==
LOC: D.ER 14:14
DX: S83.92XA Sprain of unspecified site of left knee, initial encounter (principal); X58.XXXA Exposure to other specified factors, initial encounter; I10 Essential (primary) hypertension; I48.91 Unspecified atrial fibrillation